=== PATIENT | male | born 1940 | race Caucasian/White ===

== ENCOUNTER 2021-12-04 07:02 | Observation (INO) | payer OTHER ==
--- OUTSIDE RECORDS SUMMARY | 2021-12-04 07:05 | XMS REPORT | Continuity of Care Document ---
:1940 Author Organization [facility] t Address [address] [place] [address] Care Team Providers Name Role Phone ALFREDO CHENG Primary Care Physician Unavailable JAKUB Attending Clinician Unavailable NANO CALL Attending Clinician Unavailable Cristiano_Marco Attending Clinician Unavailable Cristiano Attending Clinician [phone] JAKUB Admitting Clinician Unavailable Geb_R Admitting Clinician Unavailable Payers Payer Name Policy Type Policy Number Effective Date Expiration Date S rizwana [employer] MEDICARE HMO [id number] 2014 POS PPO 00:00:00 [employer] (MEDICARE [id number] 2013 REPLACEMENT PPO) 00:00:00 Problems This patient has no known problems. Allergies, Adverse Reactions, Alerts Allergy Allergy Status Severity Reaction(s) Onset Inactive Treating Comm ents Source Name Type Date Date Clinician NO KNOWN Allergy Active [facility] Medications This patient has no known medications. Procedures This patient has no known procedures. Encounters Start End Encounter Admission Attending Care Care Encounter Source Date/Time Date/Time Type Type Clinicians Facility Department ID 2021-04-04 2021-04-05 Outpatient JAKUB [facility] [id number] [place] 00:00:00 00:00:00 NAT [address] 2021-03-20 2021-03-20 Outpatient [facility] [id number] SLE 00:00:00 00:00:00 2021-03-20 2021-03-20 Outpatient DAYSI CALL [facility] [id number] [facility] 00:00:00 00:00:00 NAT 2021-01-12 2021-01-12 Outpatient [facility] [id number] [place] 01:03:00 01:03:00 [id number] [facility] 2021-01-06 2021-01-06 Outpatient [facility] [id number] [place] 09:36:00 09:36:00 [id number] [facility] 2020-12-18 2020-12-18 Outpatient [facility] [id number] [place] 12:19:00 12:19:00 [id number] [facility] 2020-12-18 2020-12-18 Outpatient Cristiano, [facility] [id number] 00:00:00 00:00:00 Pk [id number] Results Test Description Test Time Test Comments Results Result Sour e Comments RAD, CHEST, 2 2021-03-20 Reason for VIEWS 15:03:00 Exam:->pre op exam [facility] : 1940 Sex: M FI NAL REPORT Exam: RAD, CHEST, 2 VIEWSDate: 03/20/2021 3:02 PM Indication: Preoperative Comparison: Chest radiograph 07/23/2015 FINDINGS: Lines/Tubes:Left chest Loop recorder device. Lungs:The lungs are well-inflated. No focal consolidation or pulmonary edema. Mild left basilar subsegmental atelectasis. Pleura:No pleural effusion. No pneumothorax. Heart/Mediastinum:The cardiomediastinal silhouette is normal in size and contour. Atherosclerotic calcifications of the thoracic aorta. Bones/Soft Tissues: No acute osseous injury. Sternotomy wires in place. Right shoulder anchors. Abdomen: No free air below the diaphragm. IMPRESSION:Mild left basilar subsegmental atelectasis. No focal pneumonia or pulmonary edema. Signed: Jb Yan MDReport Verified Date/Time: 03/20/2021 15:03:25 2021-03-20 14:45:00 Test Item Value Reference Range Interpretation Comme nts THYROID STIMULATING HORMONE (BEAKER) (test code = 772) 1.595 uIU /mL 0.350-4.940 Facility Rehab Director ID - ADMINBASIC METABOLIC [id number] 14:22:00 Test Item Value Reference Range Interpretation Comments SODIUM (BEAKER) 139 meq/L 136-145 (test code = 381) POTASSIUM (BEAKER) 4.4 meq/L 3.5-5.1 (test code = 379) CHLORIDE (BEAKER) 103 meq/L 98-107 (test code = 382) CO2 (BEAKER) (test 27 meq/L 22-29 code = 355) BLOOD UREA NITROGEN 14 mg/dL 7-21 (BEAKER) (test code = 354) CREATININE (BEAKER) 1.01 mg/dL 0.57-1.25 (test code = 358) GLUCOSE RANDOM 96 mg/dL 70-105 (BEAKER) (test code = 652) CALCIUM (BEAKER) 9.3 mg/dL 8.4-10.2 (test code = 697) EGFR (BEAKER) (test 71 mL/min/1.73 ESTIMA PHOEBE GFR IS code = 1092) sq m NOT ACCURATE CREATININE CLEARANCE IN PREDICTING GLOMERULAR FILTRATION RATE . ESTIMATED GFR I S NOT APPLICABLE FOR DIALYSIS PATIEN TS. Facility Rehab Director ID - ADMINPROTHROMBIN TIME/[id number] 14:03:00 Test Item Value Reference Range Interpretation Comments PROTIME (BEAKER) 15.8 seconds 11.9-14.2 H (test code = 759) INR (BEAKER) (test 1.28 See_Comment [Automat ed message] code = 370) The system Zigswitch generated this result transmitted ref erence range: <=5.90. The reference range was not used to int erpret this result as normal/abnormal . RECOMMENDED COUMADIN/WARFARIN INR THERAPY RANGESSTANDARD DOSE: 2.0 - 3.0 Includes: PROPHYLAXIS forvenous thrombosis, systemic embolization; TREATMENT for venous thrombosis and/or pulmonary embolus.HIGH RISK: Target INR is 2.5-3.5 for patients with mechanical heart valves.CBC W/PLT COUNT & AUTO DIFFERENTIAL 2021-03-20 13:51:00 Test Item Value Reference Range Interpretation Comments WHITE BLOOD CELL COUNT (BEAKER) 6.0 K/ L 3.5-10.5 (test code = 775) RED BLOOD CELL COUNT (BEAKER) 4.11 M/ L 4.63-6.08 L (test code = 761) HEMOGLOBIN (BEAKER) (test code = 12.4 GM/DL 13.7-17.5 L 410) HEMATOCRIT (BEAKER) (test code = 37.3 % 40.1-51.0 L 411) MEAN CORPUSCULAR VOLUME (BEAKER) 90.8 fL 79.0-92.2 (test code = 753) MEAN CORPUSCULAR HEMOGLOBIN 30.2 pg 25.7-32.2 (BEAKER) (test code = 751) MEAN CORPUSCULAR HEMOGLOBIN CONC 33.2 GM/DL 32.3-36.5 (BEAKER) (test code = 752) RED CELL DISTRIBUTION WIDTH 13.4 % 11.6-14.4 (BEAKER) (test code = 412) PLATELET COUNT (BEAKER) (test 182 K/CU MM 150-450 code = 756) MEAN PLATELET VOLUME (BEAKER) 9.5 fL 9.4-12.4 (test code = 754) NUCLEATED RED BLOOD CELLS 0 /100 WBC 0-0 (BEAKER) (test code = 413) NEUTROPHILS RELATIVE PERCENT 68 % (BEAKER) (test code = 429) LYMPHOCYTES RELATIVE PERCENT 19 % (BEAKER) (test code = 430) MONOCYTES RELATIVE PERCENT 10 % (BEAKER) (test code = 431) EOSINOPHILS RELATIVE PERCENT 3 % (BEAKER) (test code = 432) BASOPHILS RELATIVE PERCENT 1 % (BEAKER) (test code = 437) NEUTROPHILS ABSOLUTE COUNT 4.06 K/ L 1.78-5.38 (BEAKER) (test code = 670) LYMPHOCYTES ABSOLUTE COUNT 1.11 K/ L 1.32-3.57 L (BEAKER) (test code = 414) MONOCYTES ABSOLUTE COUNT (BEAKER) 0.57 K/ L 0.30-0.82 (test code = 415) EOSINOPHILS ABSOLUTE COUNT 0.17 K/ L 0.04-0.54 (BEAKER) (test code = 416) BASOPHILS ABSOLUTE COUNT (BEAKER) 0.03 K/ L 0.01-0.08 (test code = 417) IMMATURE GRANULOCYTES-RELATIVE 0 % 0-1 PERCENT (BEAKER) (test code = 2804)
[2021-12-04 07:30] LABS: Absolute Lymphocytes (CBC) 1.7 K/uL (0.7-4.9); Hematocrit 40.8 % (39.6-49.0); Lymphocytes % 31.8 % (15.3-44.8); MPV 7.8 fL (7.6-11.3); RBC Red Blood Cell Count 4.53 M/uL (4.33-5.43)
[2021-12-04 08:05] LABS: Albumin 3.6 g/dL (3.4-5.0); Bilirubin Direct 0.1 mg/dL (0-0.2); Bilirubin Total 0.6 mg/dL (0.2-1.0); Magnesium 2.1 mg/dL (1.8-2.4); Potassium 4.3 mmol/L (3.5-5.1); Protein, Total 7.7 g/dL (6.4-8.2); Troponin High Sensitivity 18.8 pg/mL (<58.9)
--- NOTE | 2021-12-04 08:59 | RAD REPORT ---
EXAM DESCRIPTION: RAD - Chest Single View - 12/04/2021 8:47 am CLINICAL HISTORY: CHEST PAIN Chest pain. COMPARISON: Chest Single View dated 11/29/2017; CHEST SINGLE VIEW dated 11/13/2015; CHEST SINGLE VIEW d ated 07/01/2015 FINDINGS: Portable technique limits examination quality. Mild interstitial pulmonary edema. The heart is mildly enlarged with changes of a prior CABG. Multi l ead pacer device is present. IMPRESSION: Mild CHF.
--- NOTE | 2021-12-04 09:14 | EDPHYS ---
Physician Documentation [facility] Name: Sven Schwab Age: 81 yrs Sex: Male : 1940 Arrival Date: 12/04/2021 Time: 07:03 Bed 7 Private MD: Antonio Ireland V ED Physician Maxwell Trinidad HPI: 12/04 07:16 This 81 yrs old Male presents to ER via Ambulatory with complaints of Chest Pain, High ms3 Blood Pressure. 07:16 The patient or guardian reports chest pain that is located primarily in the Left ms3 shoulder. Onset: last night. The pain does not radiate. Associated signs and symptoms: Pertinent positives: dizziness, Pertinent negatives: diaphoresis, headache, nausea, vomiting. The chest pain is described as causing indigestion. Modifying factors: The symptoms are alleviated by nothing. the symptoms are aggravated by nothing. Severity of pain: in the emergency department the pain has improved. 81-year-old male with past medical history of coronary artery disease, hypertension, atrial fibrillation, hyperlipidemia presents for chest pain that began last night. Patient states the pain is a 1/10 and located behind his left shoulder and feels like indigestion. Patient denies alleviating or inciting factors. Patient denies nausea, vomiting, sweating. Patient endorses mild dizziness.. Historical: - Allergies: 07:14 No Known Allergies; vg1 - Home Meds: 07:14 aspirin 81 mg Oral TbEC 1 tab once daily [Active]; Lipitor Oral [Active]; Eliquis oral vg1 [Active]; Metoprolol Tartrate Oral [Active]; - PMHx: 07:14 Hyperlipidemia; Prostate Cancer; Hypertensive disorder; Myocardial infarction; Atrial vg1 fibrillation; - PSHx: 07:14 Coronary artery bypass graft; Pacemaker; vg1 - Immunization history:: Client reports receiving the 2nd dose of the Covid vaccine. - Social history:: Smoking status: Patient denies any tobacco usage or history of. ROS: 07:17 Constitutional: Negative for fever, and chills. ENT: Negative for injury, pain, and ms3 discharge, Neck: Negative for injury, pain, and swelling, Respiratory: Negative for shortness of breath, cough, wheezing, and pleuritic chest pain, Abdomen/GI: Negative for abdominal pain, nausea, vomiting, diarrhea, and constipation, Back: Negative for injury and pain, MS/Extremity: Negative for injury and deformity, Skin: Negative for injury, rash, and discoloration. 07:17 Cardiovascular: Positive for chest pain. 07:17 Neuro: Positive for dizziness. 07:17 All other systems are negative. Exam: 07:18 Constitutional: This is a well developed, well nourished patient who is awake, alert, ms3 and in no acute distress. Head/Face: Normocephalic, atraumatic. Neck: Trachea midline, no cervical lymphadenopathy. Supple, full range of motion without nuchal rigidity, or vertebral point tenderness. No Meningismus. Chest/axilla: Normal chest wall appearance and motion. Nontender with no deformity. Cardiovascular: Regular rate and rhythm with a normal S1 and S2. No gallops, murmurs, or rubs. Normal PMI, no JVD. No pulse deficits. Respiratory: Lungs have equal breath sounds bilaterally, clear to auscultation and percussion. No rales, rhonchi or wheezes noted. No increased work of breathing, no retractions or nasal flaring. Abdomen/GI: Soft, non-tender, with normal bowel sounds. No distension or tympany. No guarding or rebound. No evidence of tenderness throughout. Skin: Warm, dry with normal turgor. Normal color with no rashes, no lesions, and no evidence of cellulitis. Neuro: Awake and alert, GCS 15, oriented to person, place, time, and situation. Cranial nerves II-XII grossly intact. Motor strength 5/5 in all extremities. Sensory grossly intact. Cerebellar exam normal. Normal gait. 07:18 ECG was reviewed by the Attending Physician. ms3 Vital Signs: 07:13 BP 168 / 102; Pulse 79; Resp 17; Temp 97.6; Pulse Ox 100% ; Weight 97.52 kg; Height 6 vg1 ft. 1 in. (185.42 cm); Pain /10; 07:54 BP 137 / 83; Pulse 60; Pulse Ox 94% ; vc1 08:44 BP 144 / 83; Pulse 61; Pulse Ox 96% on R/A; ap3 09:32 BP 151 / 87; Pulse 65; Pulse Ox 96% on R/A; ap3 11:42 BP 123 / 85; Pulse 63; Pulse Ox 96% on R/A; ap3 13:00 BP 142 / 84; Pulse 64; Resp 17; Pulse Ox 98% on R/A; vg1 07:13 Body Mass Index 28.37 (97.52 kg, 185.42 cm) vg1 MDM: 07:13 Patient medically screened. ms3 07:21 Differential diagnosis: acute myocardial infarction, coronary artery disease chest wall ms3 pain, gastroesophageal reflux disease (GERD). Data interpreted: chief controller tower: rate is 79 beats/min, rhythm is normal sinus rhythm, Interpretation: normal rate, normal rhythm. 09:14 HEART Score: History: Slightly Suspicious (0), ECG: Normal (0), Age: > or = 65 years ms3 (2), Risk Factors: > or = 3 Risk factors for atherosclerotic disease (2), Troponin: < or = 1 x Normal Limit (0), Total Score = 4. Data reviewed: vital signs, nurses notes, lab test result(s), EKG, radiologic studies, plain films. 09:14 The patient was given aspirin in the Emergency Department. ms3 09:15 Test interpretation: by ED physician or midlevel provider: ECG. Counseling: I had a ms3 detailed discussion with the patient and/or guardian regarding: the historical points, exam findings, and any diagnostic results supporting the discharge/admit diagnosis, the presence of at least one elevated blood pressure reading (>120/80) during this emergency department visit, lab results, radiology results, the need for further work-up and treatment in the hospital. 10:23 ED course: Discussed case with Dr Ireland and he accepts patient as observation.. ms3 12/04 07:14 Order name: Basic Metabolic Panel; Complete Time: 08:08 3 12/04 07:14 Order name: CBC with Diff; Complete Time: 08:08 ms3 12/04 07:14 Order name: LFT's; Complete Time: 08:08 ms3 12/04 07:14 Order name: Magnesium; Complete Time: 08:08 ms3 12/04 07:14 Order name: NT PRO-BNP; Complete Time: 08:08 ms3 12/04 07:14 Order name: Troponin HS; Complete Time: 08:08 ms3 12/04 07:14 Order name: XRAY Chest (1 view); Complete Time: 09:02 ms3 12/04 07:14 Order name: EKG; Complete Time: 07:15 ms3 12/04 07:14 Order name: Cardiac monitoring; Complete Time: 07:18 ms3 12/04 07:14 Order name: EKG - Nurse/Tech; Complete Time: 07:19 ms3 12/04 09:31 Order name: COVID-19 SARS RT PCR (Document "Date of Onset" if Symptomatic); Complete em1 Time: 10:41 12/04 12:39 Order name: Dissection W/ Wo Con CT ap3 12/04 13:04 Order name: CT; Complete Time: 14:22 EDMS 12/04 07:14 Order name: IV Saline Lock; Complete Time: 07:19 ms3 12/04 07:14 Order name: Labs collected and sent; Complete Time: 07:19 ms3 12/04 07:14 Order name: O2 Per Protocol; Complete Time: 07:19 ms3 12/04 07:14 Order name: O2 Sat Monitoring; Complete Time: 07:19 ms3 EC:18 Rate is 78 beats/min. Rhythm is regular. QRS [place] is Normal. No ST changes noted. ms3 Clinical impression: No evidence of ischemia. Administered Medications: 09:31 Drug: Aspirin 325 mg Route: PO; ap3 11:43 Follow up: Response: No adverse reaction ap3 Disposition Summary: 12/04/21 09:13 Hospitalization Ordered Hospitalization Status: Observation ms3 Location: Telemetry/MedSurg (observation) ms3 Condition: Stable ms3 Problem: new ms3 Symptoms: are unchanged ms3 Bed/Room Type: Standard ms3 Provider: Antonio Ireland(12/04/21 10:23) ms3 Room Assignment: 216(12/04/21 12:40) em1 Diagnosis - Chest pain, unspecified ms3 - Atherosclerotic heart disease of [place] coronary artery ms3 - Essential (primary) hypertension ms3 - Hyperlipidemia, unspecified ms3 Forms: - Medication Reconciliation Form ms3 - SBAR form ms3 Signatures: Dispatcher [employer] Chad Schaefer em1 Elvia Mccracken RN RN ap3 Zakiya Oropeza RN RN vg1 Maxwell Trinidad DO DO ms3 Corrections: (The following items were deleted from the chart) 10: 09:13 Abdiel Joya ms3 ms3 10:24 09:15 ED course: Case discussed with Dr Joya and he accepts patient as observation as ms3 patient has moderate risk HEART score with CP that began last night.. ms3 12:40 09:13 ms3 em1
--- NOTE | 2021-12-04 09:14 | ER ---
Nurse's Notes [facility] Name: Sven Schwab Age: 81 yrs Sex: Male : 1940 Arrival Date: 12/04/2021 Time: 07:03 Bed 7 Private MD: Antonio Ireland V Diagnosis: Chest pain, unspecified;Atherosclerotic heart disease of [place] coronary artery;Essential (primary) hypertension;Hyperlipidemia, unspecified Presentation: 12/04 07:13 Chief complaint: Patient states: Chest pain began last night that radiates to the vg1 posterior side of Left shoulder. States SOB and dizziness; denies h/a and N/V. Coronavirus screen: Vaccine status: Patient reports receiving the 2nd dose of the covid vaccine. Client denies travel out of the [place] in the last 14 days. Ebola Screen: Patient negative for fever greater than or equal to 101.5 degrees Fahrenheit, and additional compatible Ebola Virus Disease symptoms. Initial Sepsis Screen: Does the patient meet any 2 criteria? No. Patient's initial sepsis screen is negative. Does the patient have a suspected source of infection? No. Patient's initial sepsis screen is negative. Risk Assessment: Do you want to hurt yourself or someone else? Patient reports no desire to harm self or others. Onset of symptoms was December 03, 2021. 07:13 Method Of Arrival: Ambulatory vg1 07:13 Acuity: RUSLAN 2 vg1 Triage Assessment: 07:14 General: Appears in no apparent distress. comfortable, Behavior is calm, cooperative. vg1 Pain: Complains of pain in chest and left shoulder Pain currently is 1 out of 10 on a pain scale. Pain began 1 day ago. EENT: No signs and/or symptoms were reported regarding the EENT system. Neuro: Level of Consciousness is awake, alert, obeys commands, Oriented to person, place, time, situation, Reports dizziness, Denies headache. Cardiovascular: Reports chest pain, shortness of breath, Patient's skin is warm and dry. Respiratory: Reports shortness of breath Airway is patent Respiratory effort is even, unlabored. GI: Patient currently denies nausea, vomiting. : No signs and/or symptoms were reported regarding the genitourinary system. Derm: Skin is intact, is healthy with good turgor. Musculoskeletal: Circulation, motion, and sensation intact. Historical: - Allergies: 07:14 No Known Allergies; vg1 - Home Meds: 07:14 aspirin 81 mg Oral TbEC 1 tab once daily [Active]; Lipitor Oral [Active]; Eliquis oral vg1 [Active]; Metoprolol Tartrate Oral [Active]; - PMHx: 07:14 Hyperlipidemia; Prostate Cancer; Hypertensive disorder; Myocardial infarction; Atrial vg1 fibrillation; - PSHx: 07:14 Coronary artery bypass graft; Pacemaker; vg1 - Immunization history:: Client reports receiving the 2nd dose of the Covid vaccine. - Social history:: Smoking status: Patient denies any tobacco usage or history of. Screenin:18 Abuse screen: Denies threats or abuse. Nutritional screening: No deficits noted. vg1 Tuberculosis screening: No symptoms or risk factors identified. Fall Risk No fall in past 12 months (0 pts). No secondary diagnosis (0 pts). IV access (20 points). Ambulatory Aid- None/Bed Rest/Nurse Assist (0 pts). Gait- Normal/Bed Rest/Wheelchair (0 pts) Mental Status- Oriented to own ability (0 pts). Total Poole Fall Scale indicates No Risk (0-24 pts). Assessment: 07:17 Pain: Pain radiates to left shoulder. vg1 07:18 Reassessment: SEE TRIAGE. vg1 07:54 Reassessment: Patient and/or family updated on plan of care and expected duration. Pain vc1 level reassessed. Patient is alert, oriented x 3, equal unlabored respirations, skin warm/dry/pink. 08:44 Reassessment: Provider at bedside giving patient and family update. ap3 09:32 Reassessment: Patient and/or family updated on plan of care and expected duration. Pain ap3 level reassessed. Patient is alert, oriented x 3, equal unlabored respirations, skin warm/dry/pink. 11:42 Reassessment: Patient and/or family updated on plan of care and expected duration. Pain ap3 level reassessed. Patient is alert, oriented x 3, equal unlabored respirations, skin warm/dry/pink. 12:45 Reassessment: Patient appears in no apparent distress at this time. Patient and/or vg1 family updated on plan of care and expected duration. Pain level reassessed. Patient is alert, oriented x 3, equal unlabored respirations, skin warm/dry/pink. Vital Signs: 07:13 BP 168 / 102; Pulse 79; Resp 17; Temp 97.6; Pulse Ox 100% ; Weight 97.52 kg; Height 6 vg1 ft. 1 in. (185.42 cm); Pain 1/10; 07:54 BP 137 / 83; Pulse 60; Pulse Ox 94% ; vc1 08:44 BP 144 / 83; Pulse 61; Pulse Ox 96% on R/A; ap3 09:32 BP 151 / 87; Pulse 65; Pulse Ox 96% on R/A; ap3 11:42 BP 123 / 85; Pulse 63; Pulse Ox 96% on R/A; ap3 13:00 BP 142 / 84; Pulse 64; Resp 17; Pulse Ox 98% on R/A; vg1 07:13 Body Mass Index 28.37 (97.52 kg, 185.42 cm) vg1 ED Course: 07:03 Patient arrived in ED. as 07:03 Antonio Ireland MD is Private Physician. as 07:06 Maxwell Trinidad DO is Attending Physician. ms3 07:13 Zakiya Oropeza, MAREK is Primary Nurse. vg1 07:14 Triage completed. vg1 07:14 Arm band placed on. vg1 07:18 Patient has correct armband on for positive identification. Placed in gown. Bed in low vg1 position. Call light in reach. Side rails up X2. Adult w/ patient. building drafter on. Pulse ox on. NIBP on. 07:18 Patient maintains SpO2 saturation greater than 95% on room air. vg1 07:20 Inserted saline lock: 20 gauge in right antecubital area, using aseptic technique. vg1 ,using aseptic technique. completed by Elvia JARA. 07:20 Initial lab(s) drawn, by ED staff, sent to lab. vg1 08:42 X-ray completed. Portable x-ray completed in exam room. Patient tolerated procedure mh1 well. 08:47 XRAY Chest (1 view) In Process Unspecified. EDMS 09:12 Abdiel Joya is Hospitalizing Provider. ms3 09:44 COVID swab sent to lab. vg1 10:23 Hospitalizing Provider role handed off by Abdiel Joya ms3 10:23 Antonio Ireland MD is Hospitalizing Provider. ms3 13:38 No provider procedures requiring assistance completed. Patient admitted, IV remains in vg1 place. Administered Medications: 09:31 Drug: Aspirin 325 mg Route: PO; ap3 11:43 Follow up: Response: No adverse reaction ap3 Outcome: 09:13 Decision to Hospitalize by Provider. ms3 13:38 Admitted to Tele accompanied by tech, via wheelchair, room 216, with chart, Report vg1 called to Emil JARA 13:38 Condition: good 13:38 Instructed on the need for admit. 13:42 Patient left the ED. vg1 Signatures: Dispatcher [employer] EDMS Mary Jane Davila 1 Lizzie Keen Amanda RN RN ap3 Zakiya Oropeza RN RN vg1 Maxwell Trinidad DO DO ms3 Corine Paige, RN RN vc1
[2021-12-04] MEDS ORDERED: ASPIRIN EC 81 MG TAB PO ONE ×2 (09:31)
[2021-12-04] MEDS ORDERED: ASPIRIN 81 MG CHEWABLE TABLET ONE (09:32)
--- NOTE | 2021-12-04 13:04 | RAD REPORT ---
EXAM DESCRIPTION: CTAngio Aorta For Dissection - 12/04/2021 12:53 pm CLINICAL HISTORY: chest pain COMPARISON: Angio Aorta For Dissection dated 10/16/2016 TECHNIQUE: CTA of the chest, abdomen, and pelvis was performed with contrast. Reconstructions were p erformed. All CT scans are performed using dose optimization technique as appropriate and may include automated exposure control or mA/KV adjustment according to patient size. FINDINGS: Thorax: Chest Wall: No abnormal mass pacemaker. Lungs: Non solid right upper lobe nodule measuring 13 millimeters is unchanged since 10/16/2016. Subs egmental atelectasis in the lingula. Subpleural nodule along the right major fissure likely a lymph n ode. Some nodules could be obscured due to motion. Left basilar atelectasis. Pleura: No effusions or pneumothorax. Chrissy/Mediastinum: Small hiatal hernia. Aorta/Pulmonary Arteries: Unremarkable Heart: Cardiomegaly. Multi-vessel coronary artery disease. Abdomen/Pelvis: Liver: No acute abnormality or suspicious lesions. Biliary: Cholecystectomy. Extrahepatic biliary duct dilatation is likely related to the postcholecyst ectomy state. Stomach: No significant focal abnormality. Duodenum: Duodenal diverticulum. Pancreas: No significant abnormality. Spleen: No significant abnormality. Adrenal: No suspicious lesions. Kidney/ureter: No hydronephrosis. No renal calculi. Too small to characterize and/or benign appearing renal lesions are noted. Retroperitoneum: No retroperitoneal adenopathy. Vascular: No aneurysm. Atherosclerosis. Bowel: No significant focal abnormality. Normal appendix Peritoneum: Fat containing inguinal hernias, left greater than right. Bladder: Grossly unremarkable. Reproductive: Fiducial markers in the prostate . Bones: No acute fracture. Sternotomy. Other: n/a IMPRESSION: No aortic aneurysm or dissection is identified. No acute findings within the chest, abdo men, or pelvis. Incidental findings as noted above.
--- NOTE | 2021-12-04 13:06 | P.HP ---
Certification for Inpatient Patient admitted to: Observation With expected LOS: <2 Midnights Practitioner: I am a practitioner with admitting privileges, knowledge of patient current condition, hospital course, and medical plan of care. Services: Services provided to patient in accordance with Admission requirements found in Title 42 Section 412.3 of the Code of Federal Regulations Patient History Date of Service: 12/04/21 Reason for admission: CHEST PAIN RADIATION TO BACK History of Present Illness: MR COMBS IS KNOWN CAD PATIENT WITH CABG [address] CALL. HE COMES HE WOKE UP WITH PAIN IN CHEST AND RADIATION TO BACK. HE HAS NO NAUSEA, VOMITING OR DIAPHORESIS. Allergies NKDA Allergy (Uncoded 11/14/15 02:27) Unknown No Known Allergi Allergy (Uncoded 03/01/17 15:39) Unknown No Known Allergie Allergy (Uncoded 11/29/17 13:08) Unknown Home medications list reviewed: Yes Home Medications: Aspirin [Aspirin EC 81 MG] 81 mg PO DAILY 10/16/16 Atorvastatin Calcium [Lipitor] 40 mg PO DAILY 10/16/16 traMADol HCL [Ultram] 50 mg PO TID PRN #30 tab 10/16/16 - Past Medical/Surgical History Diabetic: No -: gall bladder removal -: prostate cancer - radation -: cataract surgery -: Quadruple Bypass 1 year and a half ago - Family History Mother -: Heart disease, GI disease Notes: Stomach Ruptured - Social History Alcohol use: No CD- Drugs: No Caffeine use: Yes Review of Systems 10-point ROS is otherwise unremarkable Physical Examination - Physical Exam General: Alert, In no apparent distress HEENT: Atraumatic, PERRLA, Mucous membr. moist/pink, EOMI, Sclerae nonicteric Neck: Supple, 2+ carotid pulse no bruit, No LAD, Without JVD or thyroid abnormality Respiratory: Clear to auscultation bilaterally, Normal air movement Cardiovascular: Regular rate/rhythm, Normal S1 S2 Gastrointestinal: Normal bowel sounds, No tenderness Musculoskeletal: No tenderness Integumentary: No rashes Neurological: Normal gait, Normal speech, Normal strength at 5/5 x4 extr, Normal tone, Normal affect Lymphatics: No axilla or inguinal lymphadenopathy - Studies Laboratory Data (last 24 hrs) 12/04/21 07:17: WBC 5.40, Hgb 13.7, Hct 40.8, Plt Count 193 12/04/21 07:17: Sodium 137, Potassium 4.3, BUN 18, Creatinine 1.10, Glucose 114 H, Magnesium 2.1, Total Bilirubin 0.6, AST 19, ALT 25, Alkaline Phosphatase 83 Assessment and Plan - Problems (Diagnosis) (1) History of coronary artery bypass graft Current Visit: Yes Status: Acute Plan: HE IS A KNOWN CAD PATIENT. CE NEG SO FAR PAIN HAS RESOLVED WITH MEDS. (2) Chest pain Onset Date: 07/02/15 Current Visit: No Status: Acute Plan: RADIATION TO BACK ORDER CT DISSECTION PROTOCOL. TRANSFER TO FLOOR IF NEGATIVE. THIS IS A REMOTE POSSIBILITY. CONSULT CARDIOLOGY. - Advance Directives Does patient have a Living Will: Yes Does patient have a Durable POA for Healthcare: Yes
[2021-12-04 14:09] VITALS: BMI 28.3
[2021-12-04] MEDS ORDERED: SODIUM CHLORIDE 0.9% 10ML INJ IV PRN (20:56)
[2021-12-04] MEDS: APIXABAN 5 MG TABLET PO SCH (20:56)
[2021-12-04] MEDS: PANTOPRAZOLE 40 MG INJ IVP SCH (21:48)
[2021-12-05 03:34] LABS: Absolute Lymphocytes (CBC) 1.5 K/uL (0.7-4.9); Hematocrit 38.6 % (39.6-49.0); Lymphocytes % 27.5 % (15.3-44.8); RBC Red Blood Cell Count 4.29 M/uL (4.33-5.43)
[2021-12-05 03:50] LABS: Potassium 4.4 mmol/L (3.5-5.1)
[2021-12-05] MEDS ORDERED: SODIUM CHLORIDE 0.9% 20 ML VIAL IV PRN (07:16)
[2021-12-05 08:54] VITALS: BP 132/76; TEMP 97.4
[2021-12-05] MEDS ORDERED: METOPROLOL TAR 25 MG TAB PO SCH (09:00)
[2021-12-05] MEDS ORDERED: ASPIRIN EC 81 MG TAB PO SCH ×2 (09:00)
[2021-12-05] MEDS ORDERED: ATORVASTATIN 10 MG TAB PO SCH (09:00)
[2021-12-05] MEDS ORDERED: DRISDOL (VITAMIN D=ERGOCALCIFEROL) 50000 UNIT CAP PO SCH (09:00)
[2021-12-05] MEDS ORDERED: Ubidecarenone [Co Q-10] 10 MG Capsule PO SCH (09:00)
[2021-12-05] MEDS ORDERED: ENOXAPARIN 40 MG/0.4 ML SQ SCH (09:00)
[2021-12-05] MEDS: APIXABAN 5 MG TABLET PO SCH (09:15)
[2021-12-05] MEDS: PANTOPRAZOLE 40 MG INJ IVP SCH (09:16)
[2021-12-05 09:39] VITALS: O2SAT 94
--- NOTE | 2021-12-05 13:13 | EKG ---
Test Date: 2021-12-04 Test Time: 07:07:47 Fire Pilot: ALP MEASUREMENT RESULTS: Intervals: Rate: 79 IA: 228 QRSD: 104 QT: 410 QTc: 470 Brimhall: P: 63 IA: 228 QRS: 90 T: 69 INTERPRETIVE STATEMENTS: Atrial-paced rhythm with prolonged AV conduction Rightward axis Incomplete right bundle branch block Abnormal ECG Compared to ECG 11/29/2017 11:01:07 Right-axis deviation now present Incomplete right bundle-branch block now present Sinus bradycardia no longer present Electronically Signed On 12-05-21 13:08:26 HEAD GROWER by Chandan Lopez
--- NOTE | 2021-12-05 13:13 | EKG ---
Test Date: 2021-12-04 Test Time: 07:08:11 Assembler Crimper: ALP MEASUREMENT RESULTS: Intervals: Rate: 78 MS: 230 QRSD: 102 QT: 418 QTc: 476 Ford: P: 58 MS: 230 QRS: 86 T: 57 INTERPRETIVE STATEMENTS: Atrial-paced rhythm with prolonged AV conduction Incomplete right bundle branch block Abnormal ECG Compared to ECG 12/04/2021 07:07:47 Right-axis deviation no longer present Electronically Signed On 12-05-21 13:08:25 BEARING INSPECTOR by Chandan Lopez
--- NOTE | 2021-12-06 00:05 | CON ---
Date of Consultation: 12/05/2021 Reason For Consultation: Unstable angina. History Of Present Illness: Mr. Schwab is an 81-year-old male admitted to Dr. Ireland with chest pain radiating to the left arm and the right arm into the back with some diaphoresis, shortness of breath, severe hypertension of 200/120 that woke him up from sleep. Denied PND, orthopnea, pedal edema, pal pitation, or syncope. Past Medical History: Includes hypertension, dyslipidemia, paroxysmal atrial fibrillation, pacemaker , CABG, and prostate cancer. Allergies: NONE. Review of Systems: Negative. Social History: Negative. Family History: Negative. Medications: At home include Eliquis, aspirin, metoprolol, Pepcid, and Pravachol. Physical Examination: Vital Signs: Stable. By the time I saw him, his blood pressure was down to 155/78. He was in paced rhythm, rate of 60, afebrile. HEENT: Negative. Neck: Supple. No bruit. Chest: Clear to auscultation and percussion. Cardiac: Revealed a paced rhythm. No murmurs, gallops, or rubs. Abdomen: Benign. Extremities: Revealed no clubbing, cyanosis, or edema. Diagnostic Data: All within normal limits. Troponin was negative. Chest x-ray showed mild CHF. CT A was negative. Impression And Plan: Mr. Schwab has coronary artery disease status post coronary artery bypass graft a few years ago, I believe in 2014. He came in with hypertensive crisis, symptoms very classic for unstable angina. He has a pacemaker that is functioning appropriately, has hypertension, dyslipidemi a, and paroxysmal atrial fibrillation for which he takes Eliquis, has had a history of prostate cance r. He is on Pravachol, Pepcid, metoprolol, Eliquis, and aspirin. I agree with his present regimen. I think we should increase his metoprolol. Continue with aspirin and Eliquis. Hold Eliquis next we ek 48 hours before the catheterization, but I think he needs a left heart catheterization to define h is coronary anatomy. The case was discussed with him and his and Dr. Ireland. The patient agrees to proceed. He understands the risk and the benefits of the procedure. He can go home today. ALLY/YOMI Voice ID: [id number] Report ID: [id number]
== END 2021-12-05 10:40 | disposition home or self-care (01) ==
LOC: ER 07:02 → ERHOLD 10:43 → 2ND 13:37
PROVIDERS: ADMIT Internal Medicine; ATTEND Internal Medicine
DX: R07.9 Chest pain, unspecified (principal); I16.9 Hypertensive crisis, unspecified; I25.10 Atherosclerotic heart disease of native coronary artery without angina pectoris; I11.0 Hypertensive heart disease with heart failure; I50.9 Heart failure, unspecified; I48.0 Paroxysmal atrial fibrillation; E78.5 Hyperlipidemia, unspecified; I25.2 Old myocardial infarction; Z95.1 Presence of aortocoronary bypass graft; Z95.0 Presence of cardiac pacemaker; Z79.01 Long term (current) use of anticoagulants; Z79.82 Long term (current) use of aspirin; Z79.899 Other long term (current) drug therapy; Z85.46 Personal history of malignant neoplasm of prostate; Z90.49 Acquired absence of other specified parts of digestive tract; Z20.822 Contact with and (suspected) exposure to COVID-19; Z82.49 Family history of ischemic heart disease and other diseases of the circulatory system; Z83.79 Family history of other diseases of the digestive system
CPT/HCPCS: 93005 ×2; 85025 ×2; 80048 ×2; 36415; 83735; 80076; 84484 ×3; 83880; 71275; 74175; 71045; 99285; U0003; Q9967; C9113 ×2; G0378

== ENCOUNTER 2021-12-10 10:45 | Day surgery (SDC) | payer OTHER ==
[2021-12-09 10:29] VITALS: BMI 28.3
[2021-12-09 11:03] LABS: Protime INR 1.06
[~2021-12-10 10:45] MED LIST: HEPA 1000U/500MLS 1,000 UNIT/500 ML BAG IV ONE; NA CHLORIDE 0.9% 500 ML ONE
[2021-12-10] MEDS ORDERED: MIDAZOLAM HCL 2 MG/2 ML INJ ONE ×2 (11:14→11:28)
[2021-12-10] MEDS ORDERED: FENTANYL CITR 100 MCG/2 ML ONE (11:14)
[2021-12-10] MEDS ORDERED: NA CHLORIDE 0.9% 0 ML ONE (11:15)
[2021-12-10] MEDS ORDERED: ATROPINE SULF 1 MG/10 ML SYR IV ONE (11:15)
[2021-12-10 13:34] VITALS: BP 138/82; O2SAT 99
--- NOTE | 2021-12-10 21:27 | OP ---
Date of Procedure: 12/10/2021 Surgeon: Chandan Lopez MD Trim Attacher: Ms. Lisha Rolon. Patient will go home after 2 hours of bedrest and I will see him in the office in 2 weeks. No change in medical therapy at this point. He will resume his Eliquis tomorrow. Procedures: Left heart catheterization, selective coronary arteriogram, vein graft injection to the obtuse marginal, and a mammary injection left internal mammary artery to the left anterior descending . Indication: Chest pain, CAD, non STEMI. Mr. Schwab is 81, has a history of coronary artery disease, status post CABG, came into the hospital with a non STEMI, has had a pacemaker before, mild congesti ve heart failure, has a history of atrial fibrillation, hypertension, dyslipidemia, prostate cancer, as well as gastroesophageal reflux disease. He has held his Eliquis for 48 hours prior to the proced ure. Description Of Procedure: He was brought to the laborer concrete paving as an outpatient, prepped and draped in rou pablito sterile fashion, given Versed and fentanyl for sedation. 6-Senegalese sheath was introduced in the right common femoral artery successfully using the Seldinger technique and a 10 cc of xylocaine. Ang iography there was normal except for tortuosity in the common iliac. Angio-Seal was used to close th e case. Carmella catheter left and right were used to do the heart catheterization. On the tolowa dee-ni' ar black side, he had 100% occlusion of the proximal LAD, 80% occlusion of the proximal circumflex, 40% n ative RCA. Vein graft injection indicated a patent graft to the OM. The CASTRO was patent to the LAD. There were no complications. Patient tolerated the procedure well. Estimated Blood Loss: 5 mL. Anesthesia: Total conscious sedation was 45 minutes. Final Diagnoses: Severe coronary artery disease, patent left internal mammary artery, patent vein gr aft to the obtuse marginal. We will continue medical therapy. NB/MODL Voice ID: [id number] Report ID: [id number]
== END 2021-12-10 13:59 | disposition home or self-care (01) ==
LOC: CCL 10:45
DX: I25.10 Atherosclerotic heart disease of native coronary artery without angina pectoris (principal); I25.82 Chronic total occlusion of coronary artery; I11.0 Hypertensive heart disease with heart failure; I50.9 Heart failure, unspecified; I48.0 Paroxysmal atrial fibrillation; E78.5 Hyperlipidemia, unspecified; I25.2 Old myocardial infarction; K21.9 Gastro-esophageal reflux disease without esophagitis; Z95.1 Presence of aortocoronary bypass graft; Z95.0 Presence of cardiac pacemaker; Z85.46 Personal history of malignant neoplasm of prostate; Z20.822 Contact with and (suspected) exposure to COVID-19; Z79.01 Long term (current) use of anticoagulants; Z79.899 Other long term (current) drug therapy
CPT/HCPCS: 36415; 85610; 85730; 93455; C1893; J2250; J3010; J7040; J1644; J0583

== ENCOUNTER 2023-02-08 16:34 | Emergency (ER) | payer OTHER ==
--- OUTSIDE RECORDS SUMMARY | 2023-02-08 16:36 | XMS REPORT | Continuity of Care Document ---
:1940 Author Organization [facility] t Address [address] [place] [address] Care Team Providers Name Role Phone MEGHAN CHENG Primary Care Physician Unavailximena e Alok Attending Clinician Unavailable Pk Quinonez Attending Clinician [phone] NAT CALL Attending Clinician Unavailable NAT CALL Attending Clinician Unavailable Alok Admitting Clinician Unavailable NAT CALL Admitting Clinician Unavailable Payers Payer Name Policy Type Policy Number Effective Date Expiration Date Kadie wagoner [employer] (MEDICARE [id number] 2021 REPLACEMENT PPO) 00:00:00 [employer] MEDICARE HMO [id number] POS PPO 00:00:00 Problems Condition Condition Condition Status Onset Resolution Last Treating Co mments Source Name Details Category Date Date Treatment Clinician Date Erectile Erectile Problem Active [place] [facility] Dysfunctio 3-31 [facility] n 00:00: Urology 00 AV block AV block Disease Active [facility]osp[facility] 00 l Flynn Flynn Problem Active [facility] hematuria Hematuria 1-23 Met[facility] o 00:00: Urology 00 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 00:00: Urolog y 00 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[address] [facility] [address] [facility] (venous [facility]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 00[facility]: Me dical olism) olism) 00 Center Coronary Coronary Disease [facility] disease disease 00:[facility]: Medical 00 Center CAD CAD Disease Active 2014-[address] [facility] (coronary (coronary 0-07 [facility] artery artery 00:00: Medical disease) disease) 00 Center Chest pain Chest pain Disease Active 2014-[address] 0[facility] 00[facility] 00 Center Allergies, Adverse Reactions, Alerts Allergy Allergy Status Severity Reaction(s) Onset Inactive Treating Comm ents Source Name Type Date Date Clinician NO KNOWN Allergy Active [facility] Social History Social Habit Start Date Stop Date Quantity Comments Source [facility] Alcohol intake 2021-04-09 2021-04-09 Ex-drinker [facility] 00:00:00 00:00:00 (finding) Hospital History of Social 2021-04-09 2021-04-[address] function 00:00:00 00:00:00 Hospital Tobacco use and 2021-04-04 2021-04-04 Smokeless [facility] exposure 00:00:00 00:00:00 tobacco non-user Hospital Sex Assigned At [birth year] [facility] 00:[facility]:00 Hospital Smoking Status Start Date Stop Date Source Never smoked tobacco [facility] Medications Ordered Filled Start Stop Current Ordering Indication Dosage Frequency Signature Comments Components Source Medication Medication Date Date Medication? Clinician (SIG) Name Name apixaban Yes 5mg Q.5D Take 5 mg [facility] (ELIQUIS) 5 7-[address] mg tablet 14:27: (two) Hospita 29 times a l day. pravastatin Yes 20mg QD Take 20 mg [facility] (PRAVACHOL) 7-[address] 20 MG 14:27: daily. Hospita tablet 29 l metoprolol Yes 50mg QD Take 50 mg [facility] succinate 7-[address] XL 14:27: daily. Hospita (TOPROL-XL) 29 l 50 mg 24 hr tablet cholecalcif Yes QD Take by [facility]odi dusty, 7-[address] vitamin D3, 14:27: daily. Hosp qing (VITAMIN D3 29 PATIENT l ORAL) NOT SURE OF DOSAGE aspirin 2021-0 Yes 81mg QD Take 81 mg [facility] (ECOTRIN) 7-[address] 81 MG 14:27: daily. Hospita enteric 29 l coated tablet apixaban 1-0 Yes 5mg Q.5D Take 5 mg [facility] (ELIQUIS) 5 7-[address] mg tablet 14:27: (two) Hospita 29 times a l day. pravastatin 2021-0 Yes 20mg QD Take 20 mg [facility] (PRAVACHOL) 7-[address] 20 MG 14:27: daily. Hospita tablet 29 l metoprolol 1-0 Yes 50mg QD Take 50 mg M [facility] succinate 7-[address] XL 14:27: daily. Hospita (TOPROL-XL) 29 l 50 mg 24 hr tablet cholecalcif 2020-0 Yes QD Take by [facility] dusty, 7-[address] vitamin D3, 14:27: daily. Hosp qing (VITAMIN D3 29 PATIENT l ORAL) NOT SURE OF DOSAGE aspirin 2020-0 Yes 81mg QD Take 81 mg [facility] (ECOTRIN) 7-[address] 81 MG 14:27: daily. Hospita enteric 29 l coated tablet apixaban 2020-0 Yes 5mg Q.5D Take 5 mg [facility] (ELIQUIS) 5 7-[address] mg tablet 14:27: (two) Hospita 29 times a l day. pravastatin 1-0 Yes 20mg QD Take 20 mg [facility] (PRAVACHOL) 7-[address] 20 MG 14:27: daily. [facility]ospita tablet 29 l metoprolol 1-0 Yes 50mg QD Take 50 mg M [facility] succinate 7-[address] XL 14:27: daily. Hospita (TOPROL-XL) 29 l 50 mg 24 hr tablet cholecalcif 2021-0 Yes QD Take by Met [facility] dusty, 7-[address] vitamin D3, 14:27: daily. Hosp qing (VITAMIN D3 29 PATIENT l ORAL) NOT SURE OF DOSAGE aspirin 2021-0 Yes 81mg QD Take 81 mg [facility] (ECOTRIN) 7-[address] 81 MG 14:27: daily. Hospita enteric 29 l coated tablet apixaban 2021-0 Yes 5mg Q.5D Take 5 mg [facility] (ELIQUIS) 5 7-[address] mg tablet 14:27: (two) Hospita 29 times a l day. pravastatin 1-0 Yes 20mg QD Take 20 mg [facility] (PRAVACHOL) 7-[address] 20 MG 14:27: daily. Hospita tablet 29 l metoprolol 2021-0 Yes 50mg QD Take 50 mg M [facility]i succinate 7-[address] XL 14:27: daily. Hospita (TOPROL-XL) 29 l 50 mg 24 hr tablet cholecalcif 2020-0 Yes QD Take by [facility], 7-[address] vitamin D3, 14:27: daily. Hosp qing (VITAMIN D3 29 PATIENT l ORAL) NOT SURE OF DOSAGE aspirin 2021-0 Yes 81mg QD Take 81 mg [facility] (ECOTRIN) 7-[address] 81 MG 14:27: daily. Hospita enteric 29 l coated tablet apixaban 2020-0 Yes 5mg Q.5D Take 5 mg [facility] (ELIQUIS) 5 7-[address] mg tablet 14:27: (two) Hospita 29 times a l day. pravastatin 1-0 Yes 20mg QD Take 20 mg [facility] (PRAVACHOL) 7-[address] 20 MG 14:27: daily. Hospita tablet 29 l metoprolol 1-0 Yes 50mg QD Take 50 mg M [facility]i succinate 7-[address] XL 14:27: daily. Hospita (TOPROL-XL) 29 l 50 mg 24 hr tablet cholecalcif 2020-0 Yes QD Take by [facility], 7-[address] vitamin D3, 14:27: daily. Hosp qing (VITAMIN D3 29 PATIENT l ORAL) NOT SURE OF DOSAGE aspirin 1-0 Yes 81mg QD Take 81 mg [facility] (ECOTRIN) 7-[address] 81 MG 14:27: daily. Hospita enteric 29 l coated tablet Eliquis 5 Eliquis 5 No Eliquis 5 Bro mg tablet mg tablet mg tablet [facility] TAKE 1 TAKE 1 TAKE 1 Urology TABLET BY TABLET BY TABLET BY MOUTH TWICE MOUTH TWICE MOUTH A DAY. A DAY. TWICE A APPOINTM APPOINTM DAY. ENT ENT APPOINT 03/08/23 03/08/23 MENT 03/08/23 famotidine famotidine No famotidine [facility] 40 mg 40 mg 40 mg [facility] tablet TAKE tablet TAKE tablet Urology 1 TABLET BY 1 TABLET BY TAKE 1 MOUTH EVERY MOUTH EVERY TABLET BY DAY DAY MOUTH EVERY DAY metoprolol metoprolol No metoprolol [place] succinate succinate succinate [facility] ER 25 mg ER 25 mg ER 25 mg Uro logy tablet,exte tablet,exte tablet,ext nded nded ended release 24 release 24 release 24 hr TAKE 1 hr TAKE 1 hr TAKE 1 TABLET BY TABLET BY TABLET BY MOUTH EVERY MOUTH EVERY MOUTH DAY DAY EVERY DAY pravastatin pravastatin No pravastati [place] 40 mg 40 mg n 40 mg [facility] tablet TAKE tablet TAKE tablet Urology 1 TABLET BY 1 TABLET BY TAKE 1 MOUTH DAILY MOUTH DAILY TABLET BY WITH WITH MOUTH EVENING EVENING DAILY WITH MEAL MEAL EVENING MEAL Aspir-81 Aspir-81 No Aspir-81 Kaylan gibran [facility] atorvastati atorvastati No atorvastat [place] n 40 mg n 40 mg in 40 mg [facility] tablet TAKE tablet TAKE tablet Urology 1 TABLET BY 1 TABLET BY TAKE 1 MOUTH EVERY MOUTH EVERY TABLET BY DAY DAY MOUTH EVERY DAY azithromyci azithromyci No azithromyc [place] n 250 mg n 250 mg in 250 mg Me tro tablet TAKE tablet TAKE tablet Urology 2 TABLETS 2 TABLETS TAKE 2 BY MOUTH BY MOUTH TABLETS BY TODAY, THEN TODAY, THEN MOUTH TAKE 1 TAKE 1 TODAY, TABLET TABLET THEN TAKE DAILY FOR 4 DAILY FOR 4 1 TABLET DAYS DAYS DAILY FOR 4 DAYS B12 B12 No B12 [facility] colestipol colestipol No colestipol [place] 1 gram 1 gram 1 gram [facility] tablet tablet tablet Urology Eliquis 5 Eliquis 5 No Eliquis 5 Bro mg tablet mg tablet mg tablet [facility] TAKE 1 TAKE 1 TAKE 1 Urology TABLET BY TABLET BY TABLET BY MOUTH TWICE MOUTH TWICE MOUTH A DAY A DAY TWICE A DAY famotidine famotidine No famotidine [place] 40 mg 40 mg 40 mg [facility] tablet TAKE tablet TAKE tablet Urology 1 TABLET BY 1 TABLET BY TAKE 1 MOUTH EVERY MOUTH EVERY TABLET BY DAY DAY MOUTH EVERY DAY gabapentin gabapentin No gabapentin [facility] 100 mg 100 mg 100 mg [facility] capsule capsule capsule Urolog y TAKE 1 TAKE 1 TAKE 1 CAPSULE BY CAPSULE BY CAPSULE BY MOUTH THREE MOUTH THREE MOUTH TIMES A DAY TIMES A DAY THREE TIMES A DAY metoprolol metoprolol No metoprolol [place] succinate succinate succinate [facility] ER 25 mg ER 25 mg ER 25 mg Uro logy tablet,exte tablet,exte tablet,ext nded nded ended release 24 release 24 release 24 hr TAKE 1 hr TAKE 1 hr TAKE 1 TABLET BY TABLET BY TABLET BY MOUTH EVERY MOUTH EVERY MOUTH DAY DAY EVERY DAY metoprolol metoprolol No metoprolol [place] succinate succinate succinate [facility] ER 50 mg ER 50 mg ER 50 mg Uro logy tablet,exte tablet,exte tablet,ext nded nded ended release 24 release 24 release 24 hr hr hr Pneumovax-2 Pneumovax-2 No Pneumovax- [place] 3 3 23 [facility] pravastatin pravastatin No pravastati [place] 20 mg 20 mg n 20 mg [facility] tablet TAKE tablet TAKE tablet Urology 1 TABLET BY 1 TABLET BY TAKE 1 MOUTH EVERY MOUTH EVERY TABLET BY DAY IN THE DAY IN THE MOUTH EVENING EVENING EVERY DAY WITH MEALS WITH MEALS IN THE EVENING WITH MEALS Eliquis 5 Eliquis 5 No Eliquis 5 Bro mg tablet mg tablet mg tablet [facility] TAKE 1 TAKE 1 TAKE 1 Urology TABLET BY TABLET BY TABLET BY MOUTH TWICE MOUTH TWICE MOUTH A DAY A DAY TWICE A DAY famotidine famotidine No famotidine [facility] 40 mg 40 mg 40 mg [facility] tablet TAKE tablet TAKE tablet Urology 1 TABLET BY 1 TABLET BY TAKE 1 MOUTH EVERY MOUTH EVERY TABLET BY DAY DAY MOUTH EVERY DAY Flomax 0.4 Flomax 0.4 No 1capsul Q1D Flomax 0.4 [facility] mg capsule mg capsule e(s) mg capsule [facility] Take 1 Take 1 Take 1 Urology capsule capsule capsule every day every day every day by oral by oral by oral route for route for route for 30 days. 30 days. 30 days. metoprolol metoprolol No metoprolol [facility] succinate succinate succinate [facility] ER 25 mg ER 25 mg ER 25 mg Uro logy tablet,exte tablet,exte tablet,ext nded nded ended release 24 release 24 release 24 hr TAKE 1 hr TAKE 1 hr TAKE 1 TABLET BY TABLET BY TABLET BY MOUTH EVERY MOUTH EVERY MOUTH DAY DAY EVERY DAY metoprolol metoprolol No metoprolol [place] succinate succinate succinate [facility] ER 50 mg ER 50 mg ER 50 mg Uro logy tablet,exte tablet,exte tablet,ext nded nded ended release 24 release 24 release 24 hr TAKE 1 hr TAKE 1 hr TAKE 1 TABLET BY TABLET BY TABLET BY MOUTH EVERY MOUTH EVERY MOUTH DAY DAY EVERY DAY minocycline minocycline No minocyclin [facility] 100 mg 100 mg e 100 mg [facility] capsule capsule capsule Urolog y TAKE 1 TAKE 1 TAKE 1 CAPSULE BY CAPSULE BY CAPSULE BY MOUTH TWICE MOUTH TWICE MOUTH A DAY FOR 3 A DAY FOR 3 TWICE A DAYS DAYS DAY FOR 3 DAYS minocycline minocycline No minocyclin [facility] 100 mg 100 mg e 100 mg [facility] tablet TAKE tablet TAKE tablet Urology 1 TABLET BY 1 TABLET BY TAKE 1 MOUTH TWICE MOUTH TWICE TABLET BY A DAY FOR 7 A DAY FOR 7 MOUTH DAYS DAYS TWICE A DAY FOR 7 DAYS Praluent Praluent No Praluent Kaylan ston Pen 150 Pen 150 Pen 150 [facility] mg/mL mg/mL mg/mL Urology subcutaneou subcutaneou subcutaneo s pen s pen us pen injector injector injector INJECT 1ML INJECT 1ML INJECT 1ML (150MG) (150MG) (150MG) SUBCUTANEOU SUBCUTANEOU SUBCUTANEO SLY ONCE SLY ONCE USLY ONCE EVERY 14 EVERY 14 EVERY 14 DAYS. DAYS. DAYS. pravastatin pravastatin No pravastasusanne [facility] 20 mg 20 mg n 20 mg [facility] tablet TAKE tablet TAKE tablet Urology 1 TABLET BY 1 TABLET BY TAKE 1 MOUTH EVERY MOUTH EVERY TABLET BY DAY IN THE DAY IN THE MOUTH EVENING EVENING EVERY DAY WITH MEALS WITH MEALS IN THE EVENING WITH MEALS [facility] p[facility] n 40 mg [facility] tablet TAKE tablet TAKE tablet Urology 1 TABLET BY 1 TABLET BY TAKE 1 MOUTH DAILY MOUTH DAILY TABLET BY WITH WITH MOUTH EVENING EVENING DAILY WITH MEAL MEAL EVENING MEAL terbinafine terbinafine No terbinafin [facility] HCl 250 mg HCl 250 mg e HCl 250 [facility] tablet TAKE tablet TAKE mg tablet Urology 1 TABLET BY 1 TABLET BY TAKE 1 MOUTH EVERY MOUTH EVERY TABLET BY DAY DAY MOUTH EVERY DAY triamcinolo triamcinolo No triamcinol [facility] ne ne one [facility] acetonide acetonide acetonide U[facility] 0.1 % 0.1 % 0.1 % topical topical topical cream APPLY cream APPLY cream TO AFFECTED TO AFFECTED APPLY TO AREA OF AREA OF AFFECTED BACK TWICE BACK TWICE AREA OF A DAY A DAY BACK TWICE A DAY Eliquis 5 Eliquis 5 No Eliquis 5 Bro mg tablet mg tablet mg tablet [facility] TAKE 1 TAKE 1 TAKE 1 Urology TABLET BY TABLET BY TABLET BY MOUTH TWICE MOUTH TWICE MOUTH A DAY. A DAY. TWICE A APPOINTM APPOINTM DAY. ENT ENT APPOINT 03/08/23 03/08/23 MENT 03/08/23 famotidine famotidine No famotidine [facility] 40 mg 40 mg 40 mg [facility] tablet TAKE tablet TAKE tablet Urology 1 TABLET BY 1 TABLET BY TAKE 1 MOUTH EVERY MOUTH EVERY TABLET BY DAY DAY MOUTH EVERY DAY metoprolol metoprolol No metoprolol [place] succinate succinate succinate [facility] ER 25 mg ER 25 mg ER 25 mg Uro logy tablet,exte tablet,exte tablet,ext nded nded ended release 24 release 24 release 24 hr TAKE 1 hr TAKE 1 hr TAKE 1 TABLET BY TABLET BY TABLET BY MOUTH EVERY MOUTH EVERY MOUTH DAY DAY EVERY DAY pravastatin pravastatin No pravastati [facility] 40 mg 40 mg n 40 mg [facility] tablet TAKE tablet TAKE tablet Urology 1 TABLET BY 1 TABLET BY TAKE 1 MOUTH DAILY MOUTH DAILY TABLET BY WITH WITH MOUTH EVENING EVENING DAILY WITH MEAL MEAL EVENING MEAL Immunizations Ordered Immunization Filled Immunization Date Status Commen Source Name Name influenza, influenza, 2020-07-28 Completed [facility] inject[facility], injectable, 00:00:00 Urology quadrivalent quadrivalent influenza, influenza, 2020-07-28 Completed [facility] injectable, injectable, 00:00:00 Urology quadrivalent quadrivalent influenza, influenza, 2020-07-28 Completed [facility] injectable, injectable, 00:00:00 Urology quadrivalent quadrivalent influenza, influenza, 2020-07-28 Completed [facility] injectable, injectable, 00:00:00 Urology quadrivalent quadrivalent influenza, influenza, 2019-08-17 Completed [facility] injectable, injectable, 00:00:00 Urology quadrivalent quadrivalent influenza, influenza, 2019-08-17 Completed [facility] injectable, injectable, 00:00:00 Urology quadrivalent quadrivalent influenza, influenza, 2019-08-17 Completed [facility] injectable, injectable, 00:00:00 Urology quadrivalent quadrivalent influenza, influenza, 2019-08-17 Completed [facility] injectable, injectable, 00:00:00 Urology quadrivalent quadrivalent influenza, influenza, 2018-08-16 Completed [facility] injectable, injectable, 00:00:00 Urology quadrivalent quadrivalent influenza, influenza, 2018-08-[address] [facility] injectable, injectable, 00:00:00 Urology quadrivalent quadrivalent influenza, influenza, 2018-08-16 Completed [facility] injectable, injectable, 00:00:00 Urology quadrivalent quadrivalent influenza, influenza, 2018-08-16 Completed [facility] injectable, injectable, 00:00:00 Urology quadrivalent quadrivalent pneumococcal pneumococcal 2017-10-11 Completed [facility] tro polysaccharide PPV23 polysaccharide PPV23 00:00:00 Urology pneumococcal pneumococcal 2017-10-11 Completed [facility] polysaccharide PPV23 polysaccharide PPV23 00:00:00 Urology pneumococcal pneumococcal 2017-10-11 Completed [facility] tro polysaccharide PPV23 polysaccharide PPV23 00:00:00 Urology pneumococcal pneumococcal 2017-10-11 Completed [facility] tro polysaccharide PPV23 polysaccharide PPV23 00:00:00 Urology Vital Signs Vital Name Observation Time Observation Value Comments Source Height 2022-12-28 00:00:00 74 [in_i] [facility] Urology BMI (Body Mass 2022-12-28 00:00:00 25.8 kg/m2 [place] [facility] Index) [facility] Body Weight 2022-12-28 00:00:00 201 [lb_av] [facility]rology Height 2021-12-25 00:00:00 74 [in_i] [facility] Urology BMI (Body Mass 2021-12-25 00:00:00 25.8 kg/m2 [place] [facility] Index) [facility] Body Weight 2021-12-25 00:00:00 201 [lb_av] [facility] Urology Height 2020-12-18 00:00:00 74 [in_i] [facility] Urology BMI (Body Mass 2020-12-18 00:00:00 25.8 kg/m2 [place] [facility] Index) Urology Body Weight 2020-12-18 00:00:00 201 [lb_av] [facility] Urology Procedures Procedure Date / Time Performed Performing Clinician Lynne fierro Cardio- Cabg 2014-09-27 00:00:00 Dieudonne tang Urology GI-Cholecystectomy (Gall 2007-09-27 00:00:00 [facility] Diagnostic Colonoscopy 2007-09-27 00:00:00 [place] [facility] Plan of Care Planned Activity Planned Date Details Comments Source Future Scheduled 2023-05-[address] [facility] Test 00:00:00 (Season Ended) [code Medical Center = INFLUENZA VACCINE (Season Ended)] Future Scheduled 2023-01-01 COVID-19 VACCINE (#1) [facility] Test 04:17:46 [code = COVID-19 VACCINE (#1)] Future Scheduled 2023-01-01 SHINGLES VACCINES (1 [facility] Test 04:17:46 of 2) [code = SHINGLES VACCINES (1 of 2)] Future Scheduled 2023-01-01 65+ P[facility]UMOCOCCAL [facility] Test 04:17:46 VACCINE (2 - PCV) [code = 65+ PNEUMOCOCCAL VACCINE (2 - PCV)] Future Scheduled 2023-01-01 IN[facility]ENZA VACCINE [facility] Test 04:17:46 [code = INFLUENZA VACCINE] Diagnostic Test 2022-12-28 cytology, urine [code [facility] [place] [facility] Pending 00:00:00 = cytology, urine] Urology Diagnostic Test 2022-12-28 PSA, serum or plasma [place] [facility] Pending 00:00:00 [code = PSA, serum or Urolog y plasma] Diagnostic Test 2022-12-28 testosterone, total, [place] [facility] Pending 00:00:00 serum [code = Urology testosterone, total, serum] Diagnostic Test 2022-12-28 urinalysis, dipstick [place] [facility] Pending 00:00:00 [code = urinalysis, Urology dipstick] Future Scheduled 2022-09-[address] [facility] Test 00:00:00 (12+) [code = Medical Center DEPRESSION SCREENING (12+)] Future Scheduled 2022-09-27 F[place]S RISK SCREENING [facility] Test 00:00:00 [code = FALLS RISK Medical C enter SCREENING] Future Scheduled 2022-09-[address] [facility] Test 00:00:00 (12+) [code = Medical Center DEPRESSION SCREENING (12+)] Future Scheduled 2022-09-27 [place] RISK SCREENING [facility] Test 00:00:00 [code = FALLS RISK Medical C enter SCREENING] Future Scheduled 2022-09-[address] [facility] Test 00:00:00 (12+) [code = Medical Center DEPRESSION SCREENING (12+)] Future Scheduled 2022-09-27 [place] RISK SCREENING [facility] Test 00:00:00 [code = FALLS RISK Medical C enter SCREENING] Future Scheduled 2022-09-10 COVID[facility]19 [facility] 20:59:27 [code = COVID-19 VACCINE (#1)] Future Scheduled 2022-09-10 SHINGLES VACCINES ([facility] 20:59:27 of 2) [code = SHINGLES VACCINES (1 of 2)] Future Scheduled 2022-09-10 65+ [facility]OCCAL [facility] Test 20:59:27 VACCINE (2 - PCV) [code = 65+ PNEUMOCOCCAL VACCINE (2 - PCV)] Future Scheduled 2022-09-10 INFL[facility]ENZA VACCINE [facility] Test 20:59:27 [code = INFLUENZA VACCINE] Future Scheduled 2022-09-10 COVID-19 [facility]INE (#[facility] 20:59:27 [code = COVID-19 VACCINE (#1)] Future Scheduled 2022-09-10 [facility]IN[facility] 20:59:27 of 2) [code = SHINGLES VACCINES (1 of 2)] Future Scheduled 2022-09-10 65+ [facility]OCOCCAL [facility] Test 20:59:27 VACCINE (2 - PCV) [code = 65+ PNEUMOCOCCAL VACCINE (2 - PCV)] Future Scheduled 2022-09-10 [facility]ENZA [facility]ACCINE [facility] Test 20:59:27 [code = INFLUENZA VACCINE] Future Scheduled 2022-09-10 COVID-19 [facility]INE (#[facility] 20:59:27 [code = COVID-19 VACCINE (#1)] Future Scheduled 2022-09-10 SHINGLES VACCINES (1 [facility] 20:59:27 of 2) [code = SHINGLES VACCINES (1 of 2)] Future Scheduled 2022-09-10 65+ [facility]OCOCC[facility] Test 20:59:27 VACCINE (2 - PCV) [code = 65+ PNEUMOCOCCAL VACCINE (2 - PCV)] Future Scheduled 2022-09-10 [facility]ENZA [facility]ACCINE [facility] Test 20:59:27 [code = INFLUENZA VACCINE] Future Scheduled 2022-09-10 COVID[facility]19 [facility] (#[facility] 20:59:27 [code = COVID-19 VACCINE (#1)] Future Scheduled 2022-09-10 SHINGLES VACCINES (1 [facility] 20:59:27 of 2) [code = SHINGLES VACCINES (1 of 2)] Future Scheduled 2022-09-10 65+ [facility]OCOCCAL [facility] Test 20:59:27 VACCINE (2 - PCV) [code = 65+ PNEUMOCOCCAL VACCINE (2 - PCV)] Future Scheduled 2022-09-10 [facility]ENZA [facility]ACCINE [facility] Test 20:59:27 [code = INFLUENZA VACCINE] Future Scheduled 2022-05-[address] [facility] Test 00:00:00 (#1) [code = Medical Center INFLUENZA VACCINE (#1)] Future Scheduled 2022-05-[address] [facility] Test 00:00:00 (#1) [code = Medical Center INFLUENZA VACCINE (#1)] Future Scheduled 2022-05-[address] [facility] Test 00:00:00 (#1) [code = Medical Center INFLUENZA VACCINE (#1)] Future Scheduled 2022-05-[address] [facility] Test 00:00:00 (#1) [code = Medical Center INFLUENZA VACCINE (#1)] Future Scheduled 2021-09-[address] [facility] Test 00:00:00 (12+) [code = Medical Center DEPRESSION SCREENING (12+)] Future Scheduled 2021-09-27 FALLS RISK SCREENING [facility] Test 00:00:00 [code = FALLS RISK Medical C enter SCREENING] Future Scheduled 2021-09-[address] [facility] Test 00:00:00 (12+) [code = Medical Center DEPRESSION SCREENING (12+)] Future Scheduled 2021-09-27 FALLS RISK SCREENING [facility] Test 00:00:00 [code = FALLS RISK Medical C enter SCREENING] Future Scheduled 2018-10-11 PNEUMOCOCCAL 65+ [facility]RS [facility] Test 00:00:00 (2 - PCV) [code = Medical Ce nter PNEUMOCOCCAL 65+ YRS (2 - PCV)] Future Scheduled 2018-10-11 PNEUMOCOCCAL 65+ YRS [facility] Test 00:00:00 (2 - PCV) [code = Medical Ce nter PNEUMOCOCCAL 65+ YRS (2 - PCV)] Future Scheduled 2018-10-11 PNEUMOCOCCAL 65+ YRS [facility] Test 00:00:00 (2 - PCV) [code = Medical Ce nter PNEUMOCOCCAL 65+ YRS (2 - PCV)] Future Scheduled 2018-10-11 PNEUMOCOCCAL 65+ [facility]RS [facility] Test 00:00:00 (2 - PCV) [code = Medical Ce nter PNEUMOCOCCAL 65+ YRS (2 - PCV)] Future Scheduled 2015-09-[address] [facility] [facility] 00:00:00 WELLNESS (YEAR 2 or Medical Center FIRST YEAR if no IPPE) [code = MEDICARE ANNUAL WELLNESS (YEAR 2 or FIRST YEAR if no IPPE)] Future Scheduled 2015-09-[address] [facility] 00:00:00 WELLNESS (YEAR 2 or Medical Center FIRST YEAR if no IPPE) [code = MEDICARE ANNUAL WELLNESS (YEAR 2 or FIRST YEAR if no IPPE)] Future Scheduled 2015-09-[address] [facility] [facility] 00:00:00 WELLNESS (YEAR 2 or Medical Center FIRST YEAR if no IPPE) [code = MEDICARE ANNUAL WELLNESS (YEAR 2 or FIRST YEAR if no IPPE)] Future Scheduled 2015-09-[address] [facility] 00:00:00 WELLNESS (YEAR 2 or Medical Center FIRST YEAR if no IPPE) [code = MEDICARE ANNUAL WELLNESS (YEAR 2 or FIRST YEAR if no IPPE)] Future Scheduled 2015-09-[address] [facility] 00:00:00 WELLNESS (YEAR 2 or Medical Center FIRST YEAR if no IPPE) [code = MEDICARE ANNUAL WELLNESS (YEAR 2 or FIRST YEAR if no IPPE)] Future Scheduled 1988 SHINGLES VACCINES ([address] [facility] Test 00:00:00 of 2) [code = Medical Center SHINGLES VACCINES (1 of 2)] Future Scheduled 1988 SHINGLES VACCINES ([address] [facility] Test 00:00:00 of 2) [code = Medical Center SHINGLES VACCINES (1 of 2)] Future Scheduled 1988 SHINGLES VACCINES ([address] [facility] Test 00:00:00 of 2) [code = Medical Center SHINGLES VACCINES (1 of 2)] Future Scheduled 1988 SHINGLES VACCINES ([address] [facility] Test 00:00:00 of 2) [code = Medical Center SHINGLES VACCINES (1 of 2)] Future Scheduled 1988 SHINGLES VACCINES ([address] [facility] Test 00:00:00 of 2) [code = Medical Center SHINGLES VACCINES (1 of 2)] Future Scheduled 1957 DTAP/TDAP/TD VACCINES [facility] 00:00:00 (1 - Tdap) [code = Medical C enter DTAP/TDAP/TD VACCINES (1 - Tdap)] Future Scheduled 1957 DTAP/TDAP/TD VACCINES [facility] 00:00:00 (1 - Tdap) [code = Medical C enter DTAP/TDAP/TD VACCINES (1 - Tdap)] Future Scheduled 1957 DTAP/TDAP/TD VACCINES [facility] 00:00:00 (1 - Tdap) [code = Medical C enter DTAP/TDAP/TD VACCINES (1 - Tdap)] Future Scheduled 1957 DTAP/TDAP/TD VACCINES [facility] 00:00:00 (1 - Tdap) [code = Medical C enter DTAP/TDAP/TD VACCINES (1 - Tdap)] Future Scheduled 1957 DTAP/TDAP/TD VACCINES [facility] 00:00:00 (1 - Tdap) [code = Medical C enter DTAP/TDAP/TD VACCINES (1 - Tdap)] Future Scheduled [address] [facility] 00:[facility] (12+) [code = Tobacco Cessation Counseling and Screening (12+)] Future Scheduled [address] [facility] 00:00:00 [facility] Screening (12+) [code = Tobacco Cessation Counseling and Screening (12+)] Future Scheduled [address] [facility] 00:00:00 [facility] Screening (12+) [code = Tobacco Cessation Counseling and Screening (12+)] Future Scheduled [address] [facility] 00:00:00 [facility] Screening (12+) [code = Tobacco Cessation Counseling and Screening (12+)] Future Scheduled [address] [facility] 00:00:00 [facility] Screening (12+) [code = Tobacco Cessation Counseling and Screening (12+)] Future Scheduled 1939-03-03 COVID-19 VACCINE (#1) [facility] 00:00:00 [code = COVID-[address] VACCINE (#1)] Future Scheduled 1939-03-03 COVID-19 VACCINE (#1) [facility] 00:00:00 [code = COVID-[address] VACCINE (#1)] Future Scheduled 1939-03-03 COVID-19 VACCINE (#1) [facility] 00:00:00 [code = COVID-[address] VACCINE (#1)] Future Scheduled 1939-03-03 COVID-19 VACCINE (#1) [facility] 00:00:00 [code = COVID-[address] VACCINE (#1)] Future Scheduled 1939-03-03 COVID-19 VACCINE (#1) [facility] 00:00:00 [code = COVID-[address] VACCINE (#1)] Encounters Start End Encounter Admission Attending Care Care Encounter Source Date/Time Date/Time Type Type Clinicians Facility Department ID 2023-01-09 2023-01-09 Outpatient Goldfarb_R U [facility] [id number] 00:00:00 00:00:00 [id number] [facility] 2023-01-09 2023-01-09 Outpatient Goldfarb_R U [facility] [id number] 00:00:00 00:00:00 [id number] [facility] 2022-12-28 2022-12-28 Outpatient Goldfarb_R U [facility] [id number] [place] 00:00:00 00:00:00 [id number] [facility] 2022-12-28 2022-12-28 [facility] [place] - [id number] Tim figueroa 00:00:00 00:00:00 Dieudonne Quinonez MD: [id number] [facility] [address] [facility], [place] [address] , Ph. 2022-12-14 2022-12-14 Outpatient Goldfarb_R U [facility] [id number] [place] 00:00:00 00:00:00 [id number] [facility] 2022-01-09 2022-01-09 Outpatient Goldfarb_R [facility] U [id number] [place] 03:32:00 03:32:00 [id number] [facility] 2021-12-26 2021-12-26 Outpatient Goldfarb_R [facility] [id number] [place] 10:40:00 10:40:00 [id number] [facility] 2021-12-25 2021-12-25 Outpatient Goldfarb_R [facility] [id number] [place] 11:54:00 11:54:00 [id number] [facility] 2021-12-25 2021-12-25 Outpatient OSMAR Quinonez U [id number] 00:00:00 00:00:00 Pk [id number] 2021-12-25 2021-12-25 Pk [facility] [place] - [id number] H henry 00:00:00 00:00:00 Dieudonne Quinonez MD: [id number] [facility] [place] [facility] - [address], [place] [address] , Ph. 2021-12-18 2021-12-18 Outpatient Goldfarb_R [facility] U [id number] 11:47:00 11:47:00 [id number] [facility] 2021-04-04 2021-04-05 Outpatient JAKUB [facility] [id number] [place] 00:00:00 00:00:00 NAT [address] 2021-03-20 2021-03-20 Outpatient [facility] [id number] [facility] 00:00:00 00:00:00 2021-03-20 2021-03-20 Outpatient DAYSI CALL [facility] [id number] [facility] 00:00:00 00:00:00 NAT 2021-01-12 2021-01-12 Outpatient Goldfarb_R [facility] U [id number] [place] 01:03:00 01:03:00 [id number] [facility] 2021-01-06 2021-01-06 Outpatient Goldfarb_R [facility] U [id number] [place] 09:36:00 09:36:00 [id number] [facility] 2020-12-18 2020-12-18 Outpatient Goldfarb_R [facility] U [id number] 12:19:00 12:19:[id number] [facility] 2020-12-18 2020-12-18 Outpatient OSMAR Quinonez [facility] [id number] 00:00:00 00:00:00 Pk [id number] 2020-12-18 2020-12-18 Pk [facility] [place] - [id number] H christophegibran 00:00:00 00:00:00 Cristiano, Dieudonne tang MD: [id number] [facility] [place] [address], [place] [address] , Ph. Results Test Description Test Time Test Comments Results Result Comments Source Urinalysis macro (dipstick) panel - Urine 2022-12-28 10:53:0 0 Test Item Value Reference Range Interpretation Comme nts leukocytes (test code = negative neg leukocytes) urobilinogen (test code = 0.2 E.U./dL sm amt (.5-1mg/dL) urobilinogen) protein (test code = trace See_Comment [Autom ated message] The protein) system which ge nerated this result tra nsmitted reference range : <=150 mg/d. The refer ence range was not used to interpret this result as normal/abnormal . pH (test code = pH) 5.5 4.5-8 blood (test code = blood) negative See_Comment [ Automated message] The system which ge nerated this result tra nsmitted reference range : <=3 RBC. The reference r dominic was not used to int erpret this result as normal/abnormal . specific gravity (test code 1.025 1.005-1.025 = specific gravity) ketone (test code = ketone) trace none bilirubin (test code = negative neg bilirubin) glucose (test code = 100 mg/dL See_Comment [Autom ated message] The glucose) system which ge nerated this result tra nsmitted reference range : <=130 mg/d. The refer ence range was not used to interpret this result as normal/abnormal . color (test code = color) yellow yellow clarity (test code = clear clear or cloudy clarity) nitrite (test code = negative neg nitrite) [facility] UrologyUrinalysis macro (dipstick) panel - [id number] 10:33:00 Test Item Value Reference Range Interpretation Comments leukocytes (test code negative neg = leukocytes) urobilinogen (test 0.2 E.U./dL sm amt code = urobilinogen) (.5-1mg/dL) protein (test code = negative See_Comment [Autom ated protein) message] The sy stem which generated this result transmitted reference range : <=150 mg/d. The reference range was not used to interpret this result as normal/abnormal . pH (test code = pH) 6.0 4.5-8 blood (test code = trace-intact See_Comment [Automat ed blood) message] The sy stem which generated this result transmitted reference range : <=3 RBC. The reference range was not used to interpret this result as normal/abnormal . specific gravity 1.025 1.005-1.025 (test code = specific gravity) ketone (test code = negative none ketone) bilirubin (test code negative neg = bilirubin) glucose (test code = negative See_Comment [Autom ated glucose) message] The sy stem which generated this result transmitted reference range : <=130 mg/d. The reference range was not used to interpret this result as normal/abnormal . color (test code = yellow yellow color) clarity (test code = clear clear or cloudy clarity) nitrite (test code = negative neg nitrite) [facility] UrologyRAD, CHEST, 2 [id number] 15:03:00Reason for Exam:- >pre op examDANIEL JOHN [facility] SCH[facility]AB : 1940 Sex: MFINALREPORT Exam: RAD, CHEST, 2 VIEWSDate: 03/20/2021 3:02 PM Indication: Preoperative Comparison: Chest radiograph 07/23/2015 FINDINGS: Lines/Tubes:Left chest Loop recorder device. Lungs:The lungs are well-inflated. No focal consolidation or pulmonary edema. Mild left basilar subsegmental atelectasis. Pleura:No pleural effusion. No pneumothorax. Heart/Mediastinum:The cardiomediastinalsilhouette is normal in size and contour. Atherosclerotic calcifications of the thoracic aorta. Bones/Soft Tissues: No acute osseous injury. Sternotomy wires in place. Right shoulder anchors. Abdomen: No free air below the diaphragm. IMPRESSION:Mild left basilar subsegmental atelectasis. No focal pneumonia or pulmonary edema. Signed: Jb Ly MDReport Verified Date/Time: 03/20/2021 15:03:25 [id number] 14:45:00 Test Item Value Reference Range Interpretation Comments THYROID STIMULATING HORMONE 1.595 uIU/mL 0.350-4.940 (BEAKER) (test code = 772) [employer] Officer ID - ADMINBASIC METABOLIC [id number] 14:22:00 Test Item Value Reference Range Interpretation [...] S NOT APPLICABLE FOR DIALYSIS PATIEN TS. [employer] Officer ID - ADMINPROTHROMBIN [id number] 14:03:00 Test Item Value Reference Range Interpretation Comments PROTIME (BEAKER) 15.8 seconds 11.9-14.2 H (test code = 759) INR (BEAKER) (test 1.28 See_Comment [Automat ed message] code = 370) The system [employer] generated this result transmitted ref erence range: <=5.90. The reference range was not used to int erpret this result as normal/abnormal . RECOMMENDED COUMADIN/WARFARIN INR THERAPY RANGESSTANDARD DOSE: 2.0 - 3.0 Includes: PROPHYLAXIS for venous thrombosis, systemic embolization; TREATMENT for venous thrombosis and/or pulmonary embolus.HIGH RISK: Target INR is 2.5-3.5 for patients with mechanical heart valves.CBC W/PLT COUNT & AUTO [id number] 13:51:00 Test Item Value Reference Range Interpretation [...] % 0-1 PERCENT (BEAKER) (test code = 4173)
[2023-02-08] MEDS ORDERED: FAMOTIDINE 20 MG/2 ML VIAL IV ONE (17:24)
[2023-02-08 17:31] LABS: Absolute Lymphocytes (CBC) 0.9 K/uL (0.7-4.9); Hematocrit 39.8 % (39.6-49.0); Lymphocytes % 7.8 % (15.3-44.8); MCV 89.9 fL (80-100); RBC Red Blood Cell Count 4.43 M/uL (4.33-5.43)
[2023-02-08 17:50] LABS: Albumin 3.3 g/dL (3.4-5.0); Bilirubin Total 0.8 mg/dL (0.2-1.0); Potassium 4.2 mEq/L (3.5-5.1); Protein, Total 7.2 g/dL (6.4-8.2); Troponin High Sensitivity 10.1 pg/mL (<58.9)
--- NOTE | 2023-02-08 17:56 | RAD REPORT ---
EXAM DESCRIPTION: RAD - Chest Single View - 02/08/2023 5:45 pm CLINICAL HISTORY: CHEST PAIN Chest pain. COMPARISON: Chest Single View dated 12/04/2021; Chest Single View dated 11/29/2017; CHEST SINGLE VIEW d ated 11/13/2015; CHEST SINGLE VIEW dated 07/01/2015 FINDINGS: Portable technique limits examination quality. The lungs are grossly clear. The heart is mildly enlarged in size. No displaced fractures.Sternotomy wires. Multi lead pacer device. IMPRESSION: No acute intrathoracic process suspected.
--- NOTE | 2023-02-08 18:15 | RAD REPORT ---
EXAM DESCRIPTION: CT - Angio Aorta For Dissection - 02/08/2023 6:05 pm CLINICAL HISTORY: Chest pain radiating to the back. chest pain/abd pain COMPARISON: <Comparisons> TECHNIQUE: CT angiography of the aorta was performed with MIPs. All CT scans are performed using dose optimization technique as appropriate and may include automated exposure control or mA/KV adjustment according to patient size. FINDINGS: A left aortic arch is present with normal branching pattern of the great vessels.No acute aortic finding is seen such as aneurysm, penetrating ulcer or dissection. The celiac axis, SMA, HITESH and renal arteries are patent. No evidence of pulmonary embolism. The lungs are diffusely emphysematous. Mild atelectasis is present in the left lung base anteriorly. No nodule, mass or infiltrate. Small hiatal hernia. The liver demonstrates no focal mass or biliary dilatation.Cholecystectomy clips.The spleen, pancreas , adrenal glands and kidneys are within normal limits for arterial phase imaging. No bowel obstruction, free fluid or abscess.No pathologic enlarged lymphadenopathy identified.Moderat e fat containing left inguinal hernia. No fracture or worrisome bone lesion seen. IMPRESSION: No acute aortic finding is demonstrated. Mild diffuse COPD.
--- NOTE | 2023-02-08 19:31 | EDPHYS ---
Physician Documentation [facility] Name: Sven Schwab Age: 82 yrs Sex: Male : 1940 Arrival Date: 02/08/2023 Time: 16:34 Bed 16 Private MD: ED Physician Maxwell Trinidad HPI: 02/08 17:10 This 82 yrs old Male presents to ER via EMS with complaints of Chest Pain. rn 17:10 The patient presents with abdominal pain in the epigastric area. Onset: The rn symptoms/episode began/occurred just prior to arrival. The symptoms radiate to chest. Associated signs and symptoms: Pertinent positives: chest pain, Pertinent negatives: nausea and vomiting, blood in stools, constipation, diarrhea, fever, hematuria, shortness of breath, testicular pain, vomiting, vomiting blood. The symptoms are described as dull. Modifying factors: The symptoms are alleviated by antacids, the symptoms are aggravated by nothing. Severity of pain: At its worst the pain was moderate in the emergency department the pain has resolved. The patient has not experienced similar symptoms in the past. The patient has not recently seen a physician. Pt reports mid/upper abd pain, radiated to chest, dull, no sob/nausea/vomiting/blood in stool/diarrhea. Woke him up from nap. Has hx of acid reflux and doesn't take his meds consistently, pain improved after pepto bismol. Currently denies pain.. Historical: - Home Meds: 16:49 aspirin 81 mg Oral TbEC 1 tab once daily [Active]; Eliquis Oral [Active]; Lipitor Oral eh3 [Active]; Metoprolol Tartrate Oral [Active]; vitamin b12 [Active]; - PMHx: 16:49 Atrial fibrillation; Hyperlipidemia; Hypertensive disorder; Myocardial infarction; eh3 Prostate Cancer; - PSHx: 16:49 Coronary artery bypass graft; pacemaker; eh3 - Immunization history:: Adult Immunizations up to date. - Social history:: Smoking status: Patient denies any tobacco usage or history of. Patient uses alcohol, but reports only rare drinking. - Family history:: not pertinent. - Hospitalizations: : No recent hospitalization is reported. ROS: 17:10 Constitutional: Negative for fever, chills, and weight loss, Cardiovascular: Negative rn for palpitations, and edema, Respiratory: Negative for shortness of breath, cough, wheezing, and pleuritic chest pain, Abdomen/GI: Negative for nausea, vomiting, diarrhea, and constipation Back: Negative for injury and pain, MS/Extremity: Negative for injury and deformity, Skin: Negative for injury, rash, and discoloration, Neuro: Negative for headache, weakness, numbness, tingling, and seizure. Exam: 17:10 Constitutional: This is a well developed, well nourished patient who is awake, alert, rn and in no acute distress. Head/Face: Normocephalic, atraumatic. Cardiovascular: Regular rate and rhythm. No pulse deficits. Respiratory: No increased work of breathing, no retractions or nasal flaring. Abdomen/GI: Soft, non-tender Skin: Warm, dry MS/ Extremity: Pulses equal, no cyanosis. Neuro: Awake and alert, GCS 15 17:17 ECG was reviewed by the Attending Physician. rn Vital Signs: 16:36 BP 138 / 82; Pulse 68; Resp 18; Temp 98.4(O); Pulse Ox 97% on R/A; Weight 97.52 kg; eh3 Height 6 ft. 2 in. ; 17:30 BP 130 / 79; Pulse 67; Resp 18; Pulse Ox 99% on R/A; eh3 18:30 BP 123 / 75; Pulse 72; Resp 18; Pulse Ox 98% on R/A; eh3 16:36 Body Mass Index 27.60 (97.52 kg, 187.96 cm) 3 MDM: 16:45 Patient medically screened. rn 17:38 Transition of care: After a detail discussion of the patient's case, care is rn transferred to Maxwell Trinidad DO. 17:45 Transition of care: Care assumed from Elvis Pina MD. ms3 20:29 Differential diagnosis: AAA, coronary artery disease, gastroesophageal reflux disease, ms3 myocardia ischemia or infarction, non-specific abd pain, pancreatitis. Data reviewed: vital signs, nurses notes, lab test result(s), EKG, radiologic studies, and as a result, I will discharge patient. I considered the following discharge prescriptions or medication management in the emergency department Medications were administered in the Emergency Department. See MAR. Independent interpretation of the following test(s) in the Emergency Department EKG: See my EKG interpretation above athletic monitor: rate is 70 beats/min, Rhythm is normal sinus rhythm, regular, with no ectopy, Interpretation: normal rate, normal rhythm. Historians other than the Patient: Spouse/Significant Other: Patient's . Counseling: I had a detailed discussion with the patient and/or guardian regarding: the historical points, exam findings, and any diagnostic results supporting the discharge/admit diagnosis, lab results, radiology results, the need for outpatient follow up, to return to the emergency department if symptoms worsen or persist or if there are any questions or concerns that arise at home. Response to treatment: the patient's symptoms have markedly improved after treatment, and as a result, I will discharge patient. Special discussion: Based on the patient's Hx, exam, and Dx evaluation, there is no indication for emergent surgery or inpatient Tx. It is understood by the patient/guardian that if the Sx's persist or worsen they need to return immediately for re-evaluation. 02/08 16:53 Order name: CBC with Diff; Complete Time: :02/08 16:53 Order name: CMP; Complete Time: :02/08 16:53 Order name: Lipase; Complete Time: :02/08 16:53 Order name: Troponin HS; Complete Time: 19:14 02/08 16:53 Order name: XRAY Chest (1 view); Complete Time: :02/08 16:53 Order name: CT Aorta for Dissection; Complete Time: :02/08 16:53 Order name: EKG; Complete Time: 16:53 02/08 16:53 Order name: IV Saline Lock; Complete Time: 16:58 02/08 16:53 Order name: Labs collected and sent; Complete Time: 17:36 02/08 16:53 Order name: Cardiac monitoring; Complete Time: 16:58 02/08 16:53 Order name: EKG - Nurse/Tech; Complete Time: 16:58 02/08 16:53 Order name: O2 Per Protocol; Complete Time: 16:58 02/08 16:53 Order name: O2 Sat Monitoring; Complete Time: 16:58 rn EC:17 Rate is 72 beats/min. Rhythm is regular. QRS [place] is Normal. DE interval is normal. QRS rn interval is normal. QT interval is normal. No Q waves. T waves are Normal. No ST changes noted. Clinical impression: NSR w/ Non-specific ST/T Changes. Interpreted by me. Reviewed by me. Administered Medications: 17:30 Drug: Famotidine IVP 20 mg Route: IVP; Site: left antecubital; [facility] 18:30 Follow up: Response: No adverse reaction 3 Disposition Summary: 02/08/23 19:30 Discharge Ordered Location: Home ms3 Condition: Stable ms3 Diagnosis - Epigastric pain ms3 Followup: ms3 - With: Private Physician - When: 1 - 2 days - Reason: Recheck today's complaints Discharge Instructions: - Discharge Summary Sheet ms3 - Abdominal Pain, Adult ms3 Forms: - Medication Reconciliation Form ms3 - Thank You Letter ms3 - Antibiotic Education ms3 - Prescription Opioid Use ms3 Signatures: Dispatcher [employer] EDMS Elvis Pina MD MD rn Maxwell Trinidad DO DO ms3 Trisha Billy RN RN [facility]
--- NOTE | 2023-02-08 19:31 | ER ---
Nurse's Notes [facility] Name: Sven Schwab Age: 82 yrs Sex: Male : 1940 Arrival Date: 02/08/2023 Time: 16:34 Bed 16 Private MD: Diagnosis: Epigastric pain Presentation: 02/08 16:36 Chief complaint: EMS states: abdominal pain started yesterday, denies n/v/d, abd pain eh3 began radiating to chest at 1400 today, denies SOB, pain was 7/10 at worst. Took 325mg aspirin PO at home and now reports pain 0/10. Coronavirus screen: Vaccine status: Patient reports receiving the 2nd dose of the covid vaccine. Ebola Screen: No symptoms or risks identified at this time. Initial Sepsis Screen: Does the patient meet any 2 criteria? No. Patient's initial sepsis screen is negative. Does the patient have a suspected source of infection? No. Patient's initial sepsis screen is negative. Risk Assessment: Do you want to hurt yourself or someone else? Patient reports no desire to harm self or others. Onset of symptoms was February 08, 2023. 16:36 Method Of Arrival: EMS: [facility] 3 16:36 Acuity: RUSLAN 3 eh3 Triage Assessment: 16:49 General: Appears in no apparent distress. comfortable, Behavior is calm, cooperative, eh3 appropriate for age. Pain: Denies pain. EENT: No signs and/or symptoms were reported regarding the EENT system. Neuro: Level of Consciousness is awake, alert, obeys commands, Oriented to person, place, time, situation. Cardiovascular: Capillary refill < 3 seconds Patient's skin is warm and dry. Respiratory: Airway is patent Respiratory effort is even, unlabored, Respiratory pattern is regular, symmetrical. GI: Abdomen is round non-distended. : No signs and/or symptoms were reported regarding the genitourinary system. Derm: Skin is pink, warm \T\ dry. Musculoskeletal: Circulation, motion, and sensation intact. Historical: - Home Meds: 16:49 aspirin 81 mg Oral TbEC 1 tab once daily [Active]; Eliquis Oral [Active]; Lipitor Oral eh3 [Active]; Metoprolol Tartrate Oral [Active]; vitamin b12 [Active]; - PMHx: 16:49 Atrial fibrillation; Hyperlipidemia; Hypertensive disorder; Myocardial infarction; eh3 Prostate Cancer; - PSHx: 16:49 Coronary artery bypass graft; pacemaker; eh3 - Immunization history:: Adult Immunizations up to date. - Social history:: Smoking status: Patient denies any tobacco usage or history of. Patient uses alcohol, but reports only rare drinking. - Family history:: not pertinent. - Hospitalizations: : No recent hospitalization is reported. Screenin:55 [facility] ED Fall Risk Assessment (Adult) Score/Fall Risk Level 0 - 2 = Low Risk. Abuse eh3 screen: Denies threats or abuse. Denies injuries from another. Nutritional screening: No deficits noted. Tuberculosis screening: No symptoms or risk factors identified. Assessment: 16:55 Reassessment: No changes from previously documented assessment. See triage assessment. 3 Pain: Complains of pain in abdomen Pain radiates to chest Pain began gradually, 1 day ago. 17:30 Reassessment: Patient appears in no apparent distress at this time. Patient and/or 3 family updated on plan of care and expected duration. Pain level reassessed. Patient is alert, oriented x 3, equal unlabored respirations, skin warm/dry/pink. 18:30 Reassessment: Patient appears in no apparent distress at this time. Patient and/or 3 family updated on plan of care and expected duration. Pain level reassessed. Patient is alert, oriented x 3, equal unlabored respirations, skin warm/dry/pink. Vital Signs: 16:36 BP 138 / 82; Pulse 68; Resp 18; Temp 98.4(O); Pulse Ox 97% on R/A; Weight 97.52 kg; 3 Height 6 ft. 2 in. ; 17:30 BP 130 / 79; Pulse 67; Resp 18; Pulse Ox 99% on R/A; eh3 18:30 BP 123 / 75; Pulse 72; Resp 18; Pulse Ox 98% on R/A; 3 16:36 Body Mass Index 27.60 (97.52 kg, 187.96 cm) [facility] ED Course: 16:36 Patient arrived in ED. 3 16:45 Elvis Pina MD is Attending Physician. rn 16:46 Trisha Billy RN is Primary Nurse. 3 16:49 Triage completed. 3 16:49 Arm band placed on. eh3 16:55 Patient has correct armband on for positive identification. Bed in low position. Call eh3 light in reach. Side rails up X2. Client placed on continuous cardiac and pulse oximetry monitoring. NIBP monitoring applied. Door closed. Noise minimized. 16:55 Maintain EMS IV. Dressing intact. Good blood return noted. Site clean \T\ dry. Gauge \T\ eh 3 site: 20g LAC. Patient maintains SpO2 saturation greater than 95% on room air. 17:44 Attending Physician role handed off by Elvis Pina MD ms3 17:44 Maxwell Trinidad DO is Attending Physician. ms3 17:47 XRAY Chest (1 view) In Process Unspecified. EDMS 18:07 CT Aorta for Dissection In Process Unspecified. EDMS 19:50 No provider procedures requiring assistance completed. IV discontinued, intact, pf1 bleeding controlled, No redness/swelling at site. Pressure dressing applied. Administered Medications: 17:30 Drug: Famotidine IVP 20 mg Route: IVP; Site: left antecubital; 3 18:30 Follow up: Response: No adverse reaction eh3 Outcome: 19:30 Discharge ordered by . ms3 19:50 Patient left the ED. pf1 Signatures: Dispatcher [employer] EDMS Elvis Pina MD MD rn Sims, Marcus, DO DO ms3 Trisha Billy, MAREK RN 3 Yoanna Carrington, MAREK RN pf1 Corrections: (The following items were deleted from the chart) 16:58 16:55 Maintain EMS IV. Dressing intact. Good blood return noted. Site clean \T\ dry. eh3 Gauge \T\ site: 20g LAC. eh3 17:00 16:49 Cardiovascular: Capillary refill < 3 seconds Patient's skin is warm and dry. eh3 Rhythm is sinus rhythm eh3
[2023-02-08 19:55] VITALS: TEMP 98.4
[2023-02-08 19:58] VITALS: BP 123/75; O2SAT 98
--- NOTE | 2023-02-09 07:47 | EKG ---
Test Date: 2023-02-08 Test Time: 16:47:01 2Nd Grade Teacher: SHEN MEASUREMENT RESULTS: Intervals: Rate: 72 IA: 204 QRSD: 112 QT: 440 QTc: 481 [place]: P: 53 IA: 204 QRS: 74 T: 33 INTERPRETIVE STATEMENTS: Normal sinus rhythm Inferior-posterior infarct, age undetermined Abnormal ECG Compared to ECG 12/04/2021 07:08:11 Myocardial infarct finding now present Atrial-paced complex(es) or rhythm no longer present Ventricular-paced complex(es) or rhythm no longer present Incomplete right bundle-branch block no longer present Electronically Signed On 02-09-23 07:45:41 CDT by Chandan Lopez
== END 2023-02-08 19:50 | disposition home or self-care (01) ==
LOC: ER 16:34
DX: R10.13 Epigastric pain (principal); E78.5 Hyperlipidemia, unspecified; I25.2 Old myocardial infarction; K21.9 Gastro-esophageal reflux disease without esophagitis; Z85.46 Personal history of malignant neoplasm of prostate
CPT/HCPCS: 93005; 85025; 36415; 84484; 83690; 80053; 71275; 74175; 71045; 96374; 99284; Q9967

== ENCOUNTER 2024-12-29 06:52 | Emergency (ER) | payer OTHER ==
[2024-12-29] MEDS ORDERED: ONDANSETRON 4 MG/2 ML VIAL ONE (07:29)
[2024-12-29] MEDS ORDERED: MORPHINE 4 MG/ML SYR ONE (07:29)
[2024-12-29] MEDS ORDERED: NA CHLORIDE 0.9% 1,000 ML ONE (07:30)
[2024-12-29 07:49] LABS: Absolute Basophils 0.1 K/uL (0-0.5); Absolute Eosinophils 0.1 K/uL (0-0.5); Absolute Lymphocytes (CBC) 0.9 K/uL (0.7-4.9); Absolute Monocytes 0.4 K/uL (0.1-1.3); Absolute Neutrophil 6.9 K/uL (1.8-8.0); Basophils % 0.7 % (0-1.3); Eosinophils % 0.7 % (0-4.4); Hematocrit 36.5 % (39.6-49.0); Hemoglobin 12.9 g/dL (13.6-17.9); Lymphocytes % 11.2 % (15.3-44.8); MCH 31.8 pg (27.0-35.0); MCHC 35.4 g/dL (32.0-36.0); MCV 90.1 fL (80-100); MPV 8.4 fL (7.6-11.3); Monocytes % 5.1 % (3.3-12.3); Neutrophils % 82.3 % (41.7-73.7); Platelets 189 thou/uL (152-406); RBC Red Blood Cell Count 4.06 M/uL (4.33-5.43); Red Cell Distribution Width 13.7 % (12.1-15.2)
[2024-12-29 07:58] LABS: Albumin 3.5 g/dL (3.4-5.0); Albumin/Globulin Ratio 0.9 (1.1-1.8); Anion Gap 9.2 mEq/L (5.0-15.0); Bilirubin Total 0.7 mg/dL (0.2-1.0); Globulin 3.9 g/dL (2.3-3.5); Potassium 4.2 mEq/L (3.5-5.1); Protein, Total 7.4 g/dL (6.4-8.2)
[2024-12-29 08:47] LABS: Specific Gravity 1.028 (1.005-1.030); Sqamous Epithelial None Seen /HPF (None Seen); Urine Bacteria None Seen /HPF (<20); Urine Bilirubin NEGATIVE (Negative); Urine Blood 3+ (OVER) (Negative); Urine Clarity Extremely Turbid (Clear); Urine Color Yellow (Yellow); Urine Culture Reflex Order NOT NEEDED; Urine Glucose NEGATIVE (Negative); Urine Ketones NEGATIVE (Negative); Urine Microscopic Reflex YN ORDER UMIC; Urine Mucus Slight /HPF (None Seen); Urine Nitrite NEGATIVE (Negative); Urine Protein 1+ (Negative); Urine RBC >50 /HPF (None Seen); Urine Urobilinogen Normal (Normal); Urine WBC <5 /HPF (<5)
--- NOTE | 2024-12-29 10:11 | RAD REPORT ---
EXAMINATION: CT ABDOMEN AND PELVIS WITH CONTRAST CLINICAL INDICATION: ABD PAIN TECHNIQUE: CT abdomen and pelvis was performed, after the administration of IV contrast, [facility]. Axial, sagittal and coronal reconstructions were obtained. One or more of the following dose reduction techniques were used: Automated exposure control, adjustment of the mA and k V according to patient size, and iterative reconstruction. Unless otherwise specified, incidental findings do not require dedicated imaging follow-up. COMPARISON: No prior exam. FINDINGS: LOWER CHEST: Mild linear opacities are present in both lung bases likely atelectasis. Small hiatal he rnia. LIVER: Normal in size and contour. No focal lesion. Cholecystectomy clips. SPLEEN: Normal size. No focal lesion. PANCREAS: No mass, ductal dilation, or mica-pancreatic fluid. ADRENALS: Normal; no mass. KIDNEYS: 5 mm stone is present distal left ureter resulting in mild left hydronephrosis and hydrouret er. Punctate stone right kidney without hydronephrosis. Benign cysts involve both kidneys. GASTROINTESTINAL TRACT: No evidence of free air, significant intra-abdominal free fluid, bowel obstru ction or abscess. Sigmoid diverticulosis coli without diverticulitis. Moderate stool retention throughout the colon. APPENDIX: Normal appendix. LYMPH NODES: No lymphadenopathy. MUSCULOSKELETAL: No acute or suspicious osseous abnormality. ADDITIONAL FINDINGS: Moderate fat-containing left inguinal hernia. Small right fat-containing hernia. IMPRESSION: 5 mm stone distal left ureter resulting in mild left hydronephrosis and hydroureter.
--- NOTE | 2024-12-29 10:24 | ER ---
Nurse's Notes [facility] Name: Sven Schwab Age: 84 yrs Sex: Male : 1940 Arrival Date: 12/29/2024 Time: 06:52 Bed 5 Private MD: Diagnosis: Ureterolithiasis, kidney stone, hydronephrosis left side, flank pain Presentation: 12/29 07:11 Ebola Screen: No symptoms or risks identified at this time. Initial Sepsis Screen: Does ph the patient meet any 2 criteria? No. Patient's initial sepsis screen is negative. Does the patient have a suspected source of infection? No. Patient's initial sepsis screen is negative. Risk Assessment: Do you want to hurt yourself or someone else? Patient reports no desire to harm self or others. 07:11 Method Of Arrival: Ambulatory ph 07:11 Coronavirus screen: At this time, the client does not indicate any symptoms associated aa5 with coronavirus-19. 07:11 Acuity: RUSLAN 3 aa5 07:11 Onset of symptoms was December 29, 2024. aa5 07:11 Chief complaint: Patient states: was constipated x 2-3 days and did an enema last night aa5 and started having LLQ pain since around midnight. Denies nausea/vomiting/diarrhea. Reports had small BM after enema last night. Historical: - Allergies: 07:15 No Known Allergies; aa5 - Home Meds: 07:10 aspirin 81 mg Oral TbEC 1 tab once daily [Active]; Eliquis Oral [Active]; Lipitor Oral ph [Active]; Metoprolol Tartrate Oral [Active]; vitamin b12 [Active]; - PMHx: 07:10 Atrial fibrillation; Hyperlipidemia; Hypertensive disorder; Myocardial infarction; ph Prostate Cancer; - PSHx: 07:10 Coronary artery bypass graft; pacemaker; ph - Immunization history:: Adult Immunizations unknown. - Infectious Disease History:: Denies. - Social history:: Smoking status: Patient denies any tobacco usage or history of. Screenin:11 Abuse screen: Denies threats or abuse. Denies injuries from another. Nutritional ph screening: No deficits noted. Tuberculosis screening: No symptoms or risk factors identified. 07:11 [facility] ED Fall Risk Assessment (Adult) History of falling in the last 3 months, aa5 including since admission No falls in past 3 months (0 pts) Confusion or Disorientation No (0 pts) Intoxicated or Sedated No (0 pts) Impaired Gait No (0 pts) Mobility Assist Device Used No (0 pt) Altered Elimination No (0 pt) Score/Fall Risk Level 0 - 2 = Low Risk Oriented to surroundings, Maintained a safe environment, Educated pt \T\ family on fall prevention, incl call for assistance when getting out of bed, Assessed \T\ reinforced patient's understanding of fall precautions. Assessment: 07:11 General: Appears uncomfortable, Behavior is calm, cooperative. Pain: Complains of pain aa5 in left lower quadrant Pain currently is 8 out of 10 on a pain scale. Quality of pain is described as sharp, Pain began since midnight Is continuous. Neuro: Level of Consciousness is awake, alert, obeys commands, Oriented to person, place, time, situation. Cardiovascular: Patient's skin is warm and dry. Respiratory: Airway is patent Respiratory effort is even, unlabored, Respiratory pattern is regular, symmetrical. GI: Abdomen is round Bowel sounds present X 4 quads. Abdomen is tender to palpation in left lower quadrant Patient currently denies diarrhea, nausea, vomiting. : No signs and/or symptoms were reported regarding the genitourinary system. EENT: No signs and/or symptoms were reported regarding the EENT system. Derm: Skin is pink, warm \T\ dry. Musculoskeletal: Range of motion: intact in all extremities. 08:30 Reassessment: Patient is alert, oriented x 3, equal unlabored respirations, skin aa5 warm/dry/pink. Patient states feeling better. 10:20 Reassessment: Patient is alert, oriented x 3, equal unlabored respirations, skin aa5 warm/dry/pink. Vital Signs: 07:11 BP 170 / 106; Pulse 64; Resp 18 S; Temp 98.6(O); Pulse Ox 98% on R/A; Weight 96.62 kg aa5 (R); Height 6 ft. 2 in. (R); 07:43 BP 163 / 90; Pulse 61; Resp 18; Pulse Ox 97% on 2 lpm NC; ph 09:00 BP 142 / 77; Pulse 59; Resp 18; Pulse Ox 100% on R/A; ph 10:21 BP 126 / 77; Pulse 61; Resp 18; Temp 97.4; Pulse Ox 98% on R/A; ph 07:11 Body Mass Index 27.35 (96.62 kg, 187.96 cm) aa5 07:43 placed on oxygen after receiving morphine, see MAR ph ED Course: 06:55 Patient arrived in ED. gm2 07:05 Lynne Land, RN is Primary Nurse. aa5 07:11 Margo Schwarz MD is Attending Physician. sp3 07:11 Arm band placed on Patient placed in an exam room, on a stretcher, on pulse oximetry. ph 07:12 Patient has correct armband on for positive identification. Placed in gown. Bed in low ph position. Call light in reach. Side rails up X 1. Pulse ox on. NIBP on. 07:15 Triage completed. aa5 07:25 Initial lab(s) drawn, by me, sent to lab. Inserted saline lock: 20 gauge in right aa5 antecubital area, using aseptic technique. Blood collected. Flushed with 10 mL NS. 07:40 No provider procedures requiring assistance completed. aa5 09:57 CT Abd/Pelvis - IV Contrast Only In Process Unspecified. EDMS 10:33 IV discontinued, intact, bleeding controlled, No redness/swelling at site. Pressure ph dressing applied. Administered Medications: 07:34 Drug: NS 0.9% IV 1000 ml IV at 1 bolus Per protocol; to be given as a bolus over 60 ph minutes Route: IV; Rate: 1 bolus; Site: right antecubital; 10:24 Follow up: Response: No adverse reaction; IV Status: Completed infusion; IV Intake: ph 1000ml 07:42 Drug: Ondansetron IVP 4 mg IVP once; over 2 minutes Route: IVP; Site: right antecubital;ph 08:30 Follow up: Response: No adverse reaction ph 07:43 Drug: morphine IVP or IV 4 mg IVP once over 4 mins Route: IVP; Infused Over: 4 mins; ph Site: right antecubital; 08:30 Follow up: Response: No adverse reaction; Pain is decreased ph Medication: 07:11 VIS not applicable for this client. ph Intake: 10:24 IV: 1000ml; Total: 1000ml. ph Outcome: 10:22 Discharge ordered by . sp3 10:33 Discharged to home ambulatory, with significant other, ph 10:33 Condition: good 10:33 Discharge instructions given to patient, significant other, Instructed on discharge instructions, follow up and referral plans. medication usage, Demonstrated understanding of instructions, follow-up care, medications, Prescriptions given X 2, 10:36 Patient left the ED. ph Signatures: Dispatcher [employer] Lynne Walsh RN RN aa5 Brianna Billy RN RN ph Margo Schwarz MD MD sp3 Jenny Washington 2
--- NOTE | 2024-12-29 10:24 | EDPHYS ---
Physician Documentation [facility] Name: Sven Schwab Age: 84 yrs Sex: Male : 1940 Arrival Date: 12/29/2024 Time: 06:52 Bed 5 Private MD: ED Physician Margo Schwarz HPI: 12/29 07:24 This 84 yrs old Male presents to ER via Ambulatory with complaints of LEFT SIDE ABD sp3 PAIN. 07:24 84-year-old male with history of atrial fibrillation on Eliquis, hyperlipidemia, sp3 hypertension, prior IA, history of prostate cancer now presents to the ED with left lower quadrant abdominal pain and constipation over the last several days. Patient states he took an OTC enema which "cleared him out for the most part" but he has had lingering pain in that left lower quadrant. No history of diverticulitis reported. Patient denies any bleeding, vomiting or any other symptoms. Review of systems negative for fever, headache, neck pain, URI symptoms, chest pain, back pain, shortness of breath, syncope, rash, bleeding, known sick contacts, prolonged immobilization, travel history, or any other signs or symptoms on ROS at this time.. Historical: - Allergies: 07:15 No Known Allergies; aa5 - Home Meds: 07:10 aspirin 81 mg Oral TbEC 1 tab once daily [Active]; Eliquis Oral [Active]; Lipitor Oral ph [Active]; Metoprolol Tartrate Oral [Active]; vitamin b12 [Active]; - PMHx: 07:10 Atrial fibrillation; Hyperlipidemia; Hypertensive disorder; Myocardial infarction; ph Prostate Cancer; - PSHx: 07:10 Coronary artery bypass graft; pacemaker; ph - Immunization history:: Adult Immunizations unknown. - Infectious Disease History:: Denies. - Social history:: Smoking status: Patient denies any tobacco usage or history of. ROS: 07:36 Constitutional: Negative for fever, chills, and weight loss, Eyes: Negative for injury, sp3 pain, redness, and discharge, ENT: Negative for injury, pain, and discharge, Neck: Negative for injury, pain, and swelling, Cardiovascular: Negative for chest pain, palpitations, and edema, Respiratory: Negative for shortness of breath, cough, wheezing, and pleuritic chest pain, Back: Negative for injury and pain, : Negative for injury, bleeding, discharge, and swelling, MS/Extremity: Negative for injury and deformity, Skin: Negative for injury, rash, and discoloration, Neuro: Negative for headache, weakness, numbness, tingling, and seizure, Psych: Negative for depression, anxiety, suicide ideation, homicidal ideation, and hallucinations, Allergy/Immunology: Negative for hives, rash, and allergies, Endocrine: Negative for neck swelling, polydipsia, polyuria, polyphagia, and marked weight changes, Hematologic/Lymphatic: Negative for swollen nodes, abnormal bleeding, and unusual bruising, 07:36 All other systems are negative, Exam: 07:36 Constitutional: This is a well developed, well nourished patient who is awake, alert, sp3 and in no acute distress. Head/Face: Normocephalic, atraumatic. Eyes: Pupils equal round and reactive to light, extra-ocular motions intact. Lids and lashes normal. Conjunctiva and sclera are non-icteric and not injected. Cornea within normal limits. Periorbital areas with no swelling, redness, or edema. Neck: Trachea midline, no thyromegaly or masses palpated, and no cervical lymphadenopathy. Supple, full range of motion without nuchal rigidity, or vertebral point tenderness. No Meningismus. Chest/axilla: Normal chest wall appearance and motion. Nontender with no deformity. No lesions are appreciated. Cardiovascular: Regular rate and rhythm with a normal S1 and S2. No gallops, murmurs, or rubs. Normal PMI, no JVD. No pulse deficits. Respiratory: Lungs have equal breath sounds bilaterally, clear to auscultation and percussion. No rales, rhonchi or wheezes noted. No increased work of breathing, no retractions or nasal flaring. Back: No spinal tenderness. No costovertebral tenderness. Full range of motion. Skin: Warm, dry with normal turgor. Normal color with no rashes, no lesions, and no evidence of cellulitis. MS/ Extremity: Pulses equal, no cyanosis. Neurovascular intact. Full, normal range of motion. Neuro: Awake and alert, GCS 15, oriented to person, place, time, and situation. Cranial nerves II-XII grossly intact. Motor strength 5/5 in all extremities. Sensory grossly intact. Cerebellar exam normal. Normal gait. Psych: Awake, alert, with orientation to person, place and time. Behavior, mood, and affect are within normal limits. 07:36 Abdomen/GI: Abdomen left lower quadrant abdominal pain to palpation without peritoneal signs, rebound or guarding. No CVA tenderness noted., Vital Signs: 07:11 BP 170 / 106; Pulse 64; Resp 18 S; Temp 98.6(O); Pulse Ox 98% on R/A; Weight 96.62 kg aa5 (R); Height 6 ft. 2 in. (R); 07:43 BP 163 / 90; Pulse 61; Resp 18; Pulse Ox 97% on 2 lpm NC; ph 09:00 BP 142 / 77; Pulse 59; Resp 18; Pulse Ox 100% on R/A; ph 10:21 BP 126 / 77; Pulse 61; Resp 18; Temp 97.4; Pulse Ox 98% on R/A; ph 07:11 Body Mass Index 27.35 (96.62 kg, 187.96 cm) aa5 07:43 placed on oxygen after receiving morphine, see MAR ph MDM: 07:11 Medical Screening Exam initiated sp3 07:37 Data reviewed: vital signs, nurses notes, old medical records, lab test result(s), sp3 radiologic studies. ED course: 84-year-old male with PMH above now with left lower quadrant abdominal pain. Differential diagnosis includes diverticulitis, constipation, other nonspecific colitis, UTI/pyelonephritis spectrum, ureterolithiasis/kidney stone spectrum, among others. I am not highly suspicious of aortic pathology as patient had a negative scan in the fall 2023 and has no back pain or chest pain symptoms. Will administer morphine and Zofran for symptomatic control and obtain CT scan of the abdomen pelvis with IV contrast, general labs and supportive care. Disposition pending workup and patient course.. 10:21 ED course: Patient with 5 mm kidney stone on the left side with mild hydro-. Creatinine sp3 1.4 with baseline at 1.1. Patient has a urologist in [place] that he sees for his prostate which she states he will follow-up. Pain is now fully controlled. Will place him on Flomax and pain medication. I have urged him for urgent consultation given his age and history. He knows he may return here or drive straight to [place] for any further emergency needs and he understands the need for follow-up and rechecking of his creatinine. We will safely discharge him home at this time.. 12/29 07:23 Order name: CBC with Diff; Complete Time: 08:51 sp3 12/29 07:23 Order name: CMP; Complete Time: 08:51 sp3 12/29 07:23 Order name: Lipase; Complete Time: 08:51 sp3 12/29 07:23 Order name: Urinalysis w/ reflexes; Complete Time: 08:51 sp3 12/29 07:23 Order name: Lactate w/ 2H reflex if indic.; Complete Time: 08:51 sp3 12/29 09:42 Order name: CT Abd/Pelvis - IV Contrast Only; Complete Time: 10:11 sp3 12/29 07:23 Order name: IV Saline Lock; Complete Time: 07:27 sp3 12/29 07:23 Order name: Labs collected and sent; Complete Time: 07:27 sp3 Administered Medications: 07:34 Drug: NS 0.9% IV 1000 ml IV at 1 bolus Per protocol; to be given as a bolus over 60 ph minutes Route: IV; Rate: 1 bolus; Site: right antecubital; 10:24 Follow up: Response: No adverse reaction; IV Status: Completed infusion; IV Intake: ph 1000ml 07:42 Drug: Ondansetron IVP 4 mg IVP once; over 2 minutes Route: IVP; Site: right antecubital;ph 08:30 Follow up: Response: No adverse reaction ph 07:43 Drug: morphine IVP or IV 4 mg IVP once over 4 mins Route: IVP; Infused Over: 4 mins; ph Site: right antecubital; 08:30 Follow up: Response: No adverse reaction; Pain is decreased ph Disposition Summary: 12/29/24 10:22 Discharge Ordered Notes: Location: Home sp3 Condition: Stable sp3 Diagnosis - Ureterolithiasis, kidney stone, hydronephrosis left side, flank pain sp3 Followup: sp3 - With: Private Physician - When: Upon discharge from the Emergency Department - Reason: Continuance of care Discharge Instructions: - Discharge Summary Sheet sp3 - Kidney Stones sp3 Forms: - Medication Reconciliation Form sp3 - Antibiotic Education sp3 - Prescription Opioid Use sp3 - Patient Portal Instructions sp3 - Leadership Thank You Letter sp3 Prescriptions: - Flomax 0.4 mg Oral capsule - take 1 capsule ORAL route daily; 5 capsule; Refills: 0, Product Selection sp3 Permitted - Tramadol 50 mg Oral Tablet - take 1 tablet ORAL route every 8 hours as needed; 12 tablet; Refills: 0, sp3 Product Selection Permitted Signatures: Dispatcher [employer] Lynne Walsh, RN RN aa5 Brianna Billy RN RN ph Margo Schwarz MD MD sp3 Corrections: (The following items were deleted from the chart) 09:43 09:43 Abdomen Pelvis W [id number] ordered. EDMS EDMS
[2024-12-29 11:37] VITALS: BP 126/77; O2SAT 98
[2024-12-29 12:28] VITALS: TEMP 97.4
== END 2024-12-29 10:36 | disposition home or self-care (01) ==
LOC: ER 06:52
DX: N13.2 Hydronephrosis with renal and ureteral calculous obstruction (principal); R10.32 Left lower quadrant pain; I48.91 Unspecified atrial fibrillation; I10 Essential (primary) hypertension; I25.2 Old myocardial infarction; E78.5 Hyperlipidemia, unspecified; Z95.1 Presence of aortocoronary bypass graft; Z95.0 Presence of cardiac pacemaker
CPT/HCPCS: 96361; 85025; 81001; 36415; 83605; 83690; 80053; 74177; 96375; 96374; 99284; Q9967; J2405; J7030